=== PATIENT | male | born 1975 | race Caucasian/White ===

== ENCOUNTER 2020-09-04 14:41 | Inpatient (IN) | payer OTHER ==
--- NOTE | 2020-09-04 15:14 | ED ---
General Adult HPI - General Chief complaint: Chest Pain Stated complaint: CHEST PAIN Time Seen by Provider: 09/04/20 15:11 Source: patient, EMS Mode of arrival: EMS Limitations: no limitations - History of Present Illness Initial comments: Patient presents to the ED by ambulance from shelter for evaluation with shelter officers at bedside. Patient reports having intermittent left-sided chest pain radiating to his left shoulder for the past 2 days or so. Patient admits to having associated nausea, and he states that he vomited once yesterday. Patient also admits to having mild associated dyspnea. Patient denies trauma or injury, fever or chills, headache, focal numbness/weakness/neuro deficit, neck/jaw pain, pleuritic pain, cough or cold symptoms, palpitations, dizziness, nausea/vomiting/diaphoresis, abdominal pain, dysuria or urinary symptoms, d ecreased urine output, leg or calf swelling or pain, or any other symptoms or complaints. Patient states that his chest pain is currently minimal. - Related Data Allergies Allergy/AdvReac Type Severity Reaction Status Date / Time No Known Allergies Allergy Verified 09/04/20 15:02 Review of Systems ROS Statement: Those systems with pertinent positive or pertinent negative responses have been documented in the HPI. ROS Other: All systems not noted in ROS Statement are negative. Past Medical History Past Medical History: Hypertension History of Any Multi-Drug Resistant Organisms: None Reported Additional Past Surgical History / Comment(s): Surgery for repair of coarctation of the aorta as a child Past Psychological History: Bipolar, Depression Smoking Status: Never smoker Past Alcohol Use History: None Reported Past Drug Use History: None Reported General Exam Limitations: no limitations General appearance: alert, in no apparent distress Head exam: Present: atraumatic, normocephalic Eye exam: Present: normal appearance, EOMI ENT exam: Present: mucous membranes moist Neck exam: Present: other (Trachea is in midline) Respiratory exam: Present: normal lung sounds bilaterally. Absent: respiratory distress, wheezes, rales, rhonchi, stridor, chest wall tenderness Cardiovascular Exam: Present: normal rhythm, tachycardia, normal heart sounds, other (Normal radial pulses bilaterally) GI/Abdominal exam: Present: soft. Absent: distended, tenderness, guarding Extremities exam: Present: other (Negative Homans sign bilaterally). Absent: tenderness, pedal edema, calf tenderness Neurological exam: Present: alert, oriented X3. Absent: motor sensory deficit Psychiatric exam: Present: normal affect, normal mood Skin exam: Present: warm, dry, intact, normal color Course Vital Signs 09/04/20 09/04/20 09/04/20 15:02 16:55 18:05 Temperature 98.1 F Pulse Rate 114 H 97 98 Respiratory 20 18 18 Rate Blood Pressure 136/93 155/102 163/102 O2 Sat by Pulse 96 96 97 Oximetry - Reevaluation(s) Reevaluation #1: 09/04/20 19:08 Case, H&P, test results and ED management were discussed with BIJAL Jerez. He accepts hospital admission on behalf of himself Dr. Gonzalez. He agrees with cardiology consultation. He has no further recommendations at this time. 09/04/20 19:17 Patient states that his pain has improved while in the ED, he denies development of any new symptoms while in the ED. Patient has not had any vomiting while in the ED. Patient remains alert and breathing comfortably with a normal room air oxygen saturation. Patient continues to deny having any abdominal pain, and he has absolutely no abdominal tenderness on examination even with deep palpation of his epigastrium and right upper quadrant. Patient is aware of his test results, and he agrees with hospital admission at this time. EKG Findings - EKG Comments: EKG Findings:: Sinus tachycardia, ventricular rate 112 bpm, no ectopy, incomplete right bundle branch block, LVH with inferolateral ST and T-wave abnormality consistent with strain pattern, normal axis, no old EKG is available for comparison Medical Decision Making - Medical Decision Making Patient's troponin is negative. Patient's CT angiogram chest is negative for pulmonary embolism. Despite the patient's gallbladder ultrasound findings, I think that acute cholecystitis is highly unlikely. Patient is afebrile and without leukocytosis. Patient has normal liver function tests. Patient denies having any abdominal pain, and he has absolutely no abdominal tenderness on examination. I have discussed all of this with BIJAL Jerez who has accepted hospital admission. Patient will be admitted for further evaluation, cardiac monitoring and cardiology consultation. - Lab Data Result diagrams: 09/04/20 15:38 09/04/20 15:38 Lab Results 09/04/20 09/04/20 09/04/20 Range/Units 15:38 15:38 15:38 WBC 7.4 (3.8-10.6) k/uL RBC 4.63 (4.30-5.90) m/uL Hgb 14.3 (13.0-17.5) gm/dL Hct 40.1 (39.0-53.0) % MCV 86.5 (80.0-100.0) fL MCH 30.8 (25.0-35.0) pg MCHC 35.6 (31.0-37.0) g/dL RDW 12.2 (11.5-15.5) % Plt Count 154 (150-450) k/uL MPV 8.6 Neutrophils % 75 % Lymphocytes % 17 % Monocytes % 5 % Eosinophils % 1 % Basophils % 0 % Neutrophils # 5.6 (1.3-7.7) k/uL Lymphocytes # 1.3 (1.0-4.8) k/uL Monocytes # 0.3 (0-1.0) k/uL Eosinophils # 0.0 (0-0.7) k/uL Basophils # 0.0 (0-0.2) k/uL PT 11.0 (9.0-12.0) sec INR 1.0 (<1.2) APTT 20.2 L (22.0-30.0) sec D-Dimer 10.73 H (<0.60) mg/L FEU Sodium 139 (137-145) mmol/L Potassium 3.9 (3.5-5.1) mmol/L Chloride 107 (98-107) mmol/L Carbon Dioxide 19 L (22-30) mmol/L Anion Gap 13 mmol/L BUN 31 H (9-20) mg/dL Creatinine 1.41 H (0.66-1.25) mg/dL Est GFR (CKD-EPI)AfAm 69 (>60 ml/min/1.73 sqM) Est GFR (CKD-EPI)NonAf 60 (>60 ml/min/1.73 sqM) Glucose 97 (74-99) mg/dL Calcium 9.0 (8.4-10.2) mg/dL Magnesium 2.0 (1.6-2.3) mg/dL Total Bilirubin 0.8 (0.2-1.3) mg/dL AST 27 (17-59) U/L ALT 20 (4-49) U/L Alkaline Phosphatase 64 (38-126) U/L Troponin I (0.000-0.034) ng/mL NT-Pro-B Natriuret Pep pg/mL Total Protein 6.7 (6.3-8.2) g/dL Albumin 4.2 (3.5-5.0) g/dL Lipase 19 L (23-300) U/L 09/04/20 09/04/20 Range/Units 15:38 15:38 WBC (3.8-10.6) k/uL RBC (4.30-5.90) m/uL Hgb (13.0-17.5) gm/dL Hct (39.0-53.0) % MCV (80.0-100.0) fL MCH (25.0-35.0) pg MCHC (31.0-37.0) g/dL RDW (11.5-15.5) % Plt Count (150-450) k/uL MPV Neutrophils % % Lymphocytes % % Monocytes % % Eosinophils % % Basophils % % Neutrophils # (1.3-7.7) k/uL Lymphocytes # (1.0-4.8) k/uL Monocytes # (0-1.0) k/uL Eosinophils # (0-0.7) k/uL Basophils # (0-0.2) k/uL PT (9.0-12.0) sec INR (<1.2) APTT (22.0-30.0) sec D-Dimer (<0.60) mg/L FEU Sodium (137-145) mmol/L Potassium (3.5-5.1) mmol/L Chloride (98-107) mmol/L Carbon Dioxide (22-30) mmol/L Anion Gap mmol/L BUN (9-20) mg/dL Creatinine (0.66-1.25) mg/dL Est GFR (CKD-EPI)AfAm (>60 ml/min/1.73 sqM) Est GFR (CKD-EPI)NonAf (>60 ml/min/1.73 sqM) Glucose (74-99) mg/dL Calcium (8.4-10.2) mg/dL Magnesium (1.6-2.3) mg/dL Total Bilirubin (0.2-1.3) mg/dL AST (17-59) U/L ALT (4-49) U/L Alkaline Phosphatase (38-126) U/L Troponin I 0.016 (0.000-0.034) ng/mL NT-Pro-B Natriuret Pep 38 pg/mL Total Protein (6.3-8.2) g/dL Albumin (3.5-5.0) g/dL Lipase (23-300) U/L - Radiology Data Radiology results: report reviewed (Chest x-ray: Normal chest) CT angiography chest with IV contrast: No evidence of pulmonary embolism. Emphysema. Large gallbladder could relate to cholecystitis. Gallbladder ultrasound: Mildly dilated gallbladder. Minimal wall thickening. This is consistent with cholecystitis. No gallstones seen. No focal liver defect. Disposition Clinical Impression: Chest pain Disposition: ADMITTED IP TO THIS HOSP Condition: Stable Is patient prescribed a controlled substance at d/c from ED?: No Referrals: None,Stated [Primary Care Provider] - 1-2 days Time of Disposition: 19:09
[2020-09-04] MEDS ORDERED: ASPIRIN 81 MG PO STA (15:19)
[2020-09-04 15:49] LABS: Basophils % (A) 0 %; Eosinophils % (A) 1 %; HCT 40.1 % (39.0-53.0); HGB 14.3 gm/dL (13.0-17.5); Lymphocytes # (A) 1.3 k/uL (1.0-4.8); Lymphocytes % (A) 17 %; MCH 30.8 pg (25.0-35.0); MCHC 35.6 g/dL (31.0-37.0); MCV 86.5 fL (80.0-100.0); Mean Platelet Volume 8.6; Monocytes # (A) 0.3 k/uL (0-1.0); Monocytes % (A) 5 %; Neutrophils # (A) 5.6 k/uL (1.3-7.7); Neutrophils % (A) 75 %; Platelet Count 154 k/uL (150-450); RBC 4.63 m/uL (4.30-5.90); RDW 12.2 % (11.5-15.5); WBC 7.4 k/uL (3.8-10.6)
[2020-09-04 15:57] LABS: Albumin 4.2 g/dL (3.5-5.0); Potassium 3.9 mmol/L (3.5-5.1); Total Bilirubin 0.8 mg/dL (0.2-1.3); Total Protein 6.7 g/dL (6.3-8.2)
--- NOTE | 2020-09-04 16:09 | XR ---
EXAMINATION TYPE: XR chest 1V portable DATE OF EXAM: 09/04/2020 COMPARISON: NONE HISTORY: Chest pain TECHNIQUE: Single view FINDINGS: Heart and mediastinum are normal. Lungs are clear. Diaphragm is normal. Bony thorax is inta ct. IMPRESSION: Normal chest.
[2020-09-04 16:21] LABS: D-Dimer 10.73 mg/L FEU (<0.60); Partial Thromboplastin Time 20.2 sec (22.0-30.0)
[2020-09-04] MEDS ORDERED: SODIUM CHLORIDE 0.9% 1,000 ML IV ONE (16:24)
--- NOTE | 2020-09-04 17:12 | CT ---
EXAMINATION TYPE: CT chest angio for PE DATE OF EXAM: 09/04/2020 COMPARISON: None HISTORY: Chest pain with shortness of breath. CT DLP: 480.2 mGycm Automated exposure control for dose reduction was used. CONTRAST: Performed with IV Contrast, patient injected with 80 mL of Isovue 370. Images obtained from the thoracic inlet to the diaphragm with IV contrast. There are 3-D post process ed images. There is some bullous pulmonary emphysema. There is no pneumothorax. The lungs are clear of consolida tion. There is no pleural effusion. Heart size is normal. There is no pericardial effusion. There is no mediastinal adenopathy. There are no hilar masses. Thoracic aorta shows no aneurysm or di ssection. Ascending aorta measures 3.2 cm. There is normal contrast opacification of the pulmonary arteries. There are no filling defects. The upper abdominal soft tissues show mildly dilated gallbladder measuring 5 cm in diameter. The bony thorax is intact. There is no compression fracture. Sternum is intact. IMPRESSION: No evidence of pulmonary embolism. Emphysema. Large gallbladder could relate to cholecystitis.
--- NOTE | 2020-09-04 18:30 | US ---
EXAMINATION TYPE: US gallbladder DATE OF EXAM: 09/04/2020 COMPARISON: NONE CLINICAL HISTORY: Enlarged gallbladder on CT, vomiting. Very difficult and limited exam due to overly ing bowel gas EXAM MEASUREMENTS: Liver Length: 12.8 cm Gallbladder Wall: 0.27 cm CBD: 0.3 cm Right Kidney: 9.8 x 4.4 x 4.4 cm Pancreas: Obscured by bowel gas Liver: wnl as visualized Gallbladder: Appears hydropic, no stones visualized. Wall measuring upper limits of normal Evidence for sonographic Rivas's sign: No CBD: wnl Right Kidney: No hydronephrosis or masses seen IMPRESSION: Mildly dilated gallbladder. Minimal wall thickening. This is consistent with cholecystitis. No gallst ones seen. No focal liver defect.
[2020-09-04] MEDS ORDERED: MORPHINE SULFATE 4 MG/ML SYRINGE IVP PRN (21:01)
[2020-09-04] MEDS ORDERED: ACETAMINOPHEN TAB 325 MG TAB PO PRN (21:02)
[2020-09-04] MEDS ORDERED: PANTOPRAZOLE 40 MG TABLET PO STA (21:06)
[2020-09-04] MEDS: PANTOPRAZOLE 40 MG TABLET PO SCH ×2 (22:09→22:26)
[2020-09-04] MEDS: HEPARIN SODIUM,PORCINE/PF 5,000 UNIT/0.5 ML SYRINGE SQ SCH (22:09)
[2020-09-04] MEDS: busPIRone HCl 5 MG TAB PO SCH (23:32)
[2020-09-05] MEDS: buPROPion 100 MG TAB PO SCH ×3 (00:02→21:17)
[2020-09-05] MEDS: PANTOPRAZOLE 40 MG TABLET PO SCH (08:55)
[2020-09-05] MEDS: busPIRone HCl 5 MG TAB PO SCH ×2 (08:55→21:10)
[2020-09-05] MEDS: HEPARIN SODIUM,PORCINE/PF 5,000 UNIT/0.5 ML SYRINGE SQ SCH ×2 (08:56→21:11)
[2020-09-05 09:20] LABS: Basophils # (A) 0.04 X 10*3/uL (0.00-0.10); Basophils % (A) 0.6 %; Eosinophils # (A) 0.12 X 10*3/uL (0.04-0.35); Eosinophils % (A) 1.8 %; HCT 38.6 % (39.6-50.0); HGB 13.2 g/dL (13.0-17.0); Lymphocytes # (A) 2.04 X 10*3/uL (0.90-5.00); Lymphocytes % (A) 31.1 %; MCH 30.5 pg (27.0-32.0); MCHC 34.2 g/dL (32.0-37.0); MCV 89.1 fL (80.0-97.0); Mean Platelet Volume 11.8 fL (9.5-12.2); Monocytes # (A) 0.56 X 10*3/uL (0.20-1.00); Monocytes % (A) 8.5 %; Neutrophils # (A) 3.78 X 10*3/uL (1.80-7.70); Neutrophils % (A) 57.8 %; Platelet Count 165 X 10*3/uL (140-440); RBC 4.33 X 10*6/uL (4.40-5.60); RDW 12.3 % (11.5-14.5); WBC 6.55 X 10*3/uL (4.50-10.00)
--- NOTE | 2020-09-05 09:36 | P.CRDCN ---
History of Present Illness Consult date: 09/05/20 Requesting physician: Isaac Gonzalez Reason for Consult (text): chest pain Chief complaint: chest pain History of present illness: This is a 44-year-old gentleman with history of hypertension, bipolar depression, chronic lung disease and surgery as a child to repair coarctation of the aorta. He was a previous smoker but quit 11 years ago. Patient has been in assisted for the last 11 years. Is brought to the emergency department with complaints of chest discomfort over the last couple of days. He's been having left-sided chest discomfort radiating to the left shoulder at times. He's also been having some nausea, poor appetite, episodes of emesis. Complaining of some occasional palpitations over the last couple of days as well as his chest feeling heavy for the last 2 days. He complains of shortness of breath however this is somewhat normal for him he is on inhalers on a regular basis. EKG on admission shows sinus tachycardia, biatrial enlargement, incomplete right bundle-branch block and evidence of LVH. Chest x-ray showed normal chest. Chest CTA showed no evidence of pulmonary embolism, emphysema and large gallbladder which could relate to cholecystitis. Ultrasound of the gallbladder showed mildly dilated gallbladder, minimal wall thickening, consistent with cholecystitis, no gallstones and no focal liver defect. Patient has no abdominal tenderness to palpation. Laboratory values showed a normal CBC, potassium 3.9, BUN 31, creatinine 1.41, NT proBNP of 38 and troponin 0.016, 0.045 and 0.040. Upon examination comfortably in bed he has no further complaints of chest discomfort. He's had no further complaints of nausea or vomiting, no dizziness or lightheadedness. He denies any shortness of breath or palpitations at this time. He's had no edema or orthopnea. Past Medical History Past Medical History: Hypertension History of Any Multi-Drug Resistant Organisms: None Reported Past Surgical History: Coronary Bypass/CABG Additional Past Surgical History / Comment(s): Surgery for repair of coarctation of the aorta as a child Past Psychological History: Bipolar, Depression Smoking Status: Never smoker Past Alcohol Use History: None Reported Past Drug Use History: None Reported Medications and Allergies Home Medications Medication Instructions Recorded Confirmed Type Albuterol Sulfate [Albuterol 1 puff PO RT-QID PRN 09/04/20 09/04/20 History Sulfate Hfa] Cetirizine HCl 10 mg PO DAILY 09/04/20 09/04/20 History Ciclesonide [Alvesco] 2 puff INHALATION RT-BID 09/04/20 09/04/20 History Ibuprofen [Motrin Ib] 800 mg PO BID PRN 09/04/20 09/04/20 History Omeprazole 20 mg PO DAILY 09/04/20 09/04/20 History buPROPion [Wellbutrin] 100 mg PO BID 09/04/20 09/04/20 History busPIRone HCL 15 mg PO BID 09/04/20 09/04/20 History chlorproMAZINE [Thorazine] 100 mg PO HS 09/04/20 09/04/20 History lisinopriL 30 mg PO DAILY 09/04/20 09/04/20 History Allergies Allergy/AdvReac Type Severity Reaction Status Date / Time No Known Allergies Allergy Verified 09/04/20 19:37 Physical Exam Vitals: Vital Signs Temp Pulse Pulse Resp BP BP Pulse Ox 09/05/20 07:00 97.6 F 91 17 126/83 98 09/05/20 02:00 98.2 F 102 H 17 105/67 96 09/04/20 20:00 98.7 F 92 18 143/105 99 09/04/20 19:27 98.2 F 97 18 131/90 96 09/04/20 18:05 98 18 163/102 97 09/04/20 16:55 97 18 155/102 96 09/04/20 15:02 98.1 F 114 H 20 136/93 96 Intake and Output 09/04/20 09/05/20 09/05/20 22:59 06:59 14:59 Other: Voiding Method Toilet Urinal Weight 84.822 kg PHYSICAL EXAMINATION: This is a 44-year-old gentleman in no apparent distress at the time of my examination. VITAL SIGNS: Blood pressure 126/83, heart rate 91, respirations 17, temp 97.6F. Patient is 98 % on 2 L via nasal cannula. HEENT: Head is atraumatic, normocephalic. Pupils are equal, round. Sclerae anicteric. Conjunctivae are clear. Mucous membranes of the mouth are moist. Neck is supple. There is no elevated jugular venous pressure. No carotid bruit is heard. CHEST EXAMINATION: Diminished to auscultation bilaterally. No wheezes rales or rhonchi. Respirations even and nonlabored. HEART EXAMINATION: Heart regular, positive S1 and S2. No S3. No S4. No clicks, rubs or murmurs. No chest wall tenderness to palpation ABDOMEN: Soft, nontender. Bowel sounds are heard. No organomegaly noted. EXTREMITIES: 2+ peripheral pulses with no evidence of peripheral edema and no calf tenderness noted. NEUROLOGIC EXAMINATION: Patient is awake, alert and oriented x3. Results 09/05/20 04:28 09/04/20 15:38 Cardiac Enzymes 09/04/20 09/04/20 09/04/20 Range/Units 15:38 15:38 21:40 AST 27 (17-59) U/L Troponin I 0.016 0.045 H* (0.000-0.034) ng/mL 09/05/20 Range/Units 00:32 AST (17-59) U/L Troponin I 0.040 H* (0.000-0.034) ng/mL Coagulation 09/04/20 Range/Units 15:38 PT 11.0 (9.0-12.0) sec APTT 20.2 L (22.0-30.0) sec CBC 09/04/20 Range/Units 15:38 WBC 7.4 (3.8-10.6) k/uL RBC 4.63 (4.30-5.90) m/uL Hgb 14.3 (13.0-17.5) gm/dL Hct 40.1 (39.0-53.0) % Plt Count 154 (150-450) k/uL Comprehensive Metabolic Panel 09/04/20 Range/Units 15:38 Sodium 139 (137-145) mmol/L Potassium 3.9 (3.5-5.1) mmol/L Chloride 107 (98-107) mmol/L Carbon Dioxide 19 L (22-30) mmol/L BUN 31 H (9-20) mg/dL Creatinine 1.41 H (0.66-1.25) mg/dL Glucose 97 (74-99) mg/dL Calcium 9.0 (8.4-10.2) mg/dL AST 27 (17-59) U/L ALT 20 (4-49) U/L Alkaline Phosphatase 64 (38-126) U/L Total Protein 6.7 (6.3-8.2) g/dL Albumin 4.2 (3.5-5.0) g/dL Current Medications Generic Name Dose Route Start Last Admin Trade Name Freq PRN Reason Stop Dose Admin Acetaminophen 650 mg 09/04/20 21:02 Acetaminophen Tab 325 Mg Tab PO Q6HR PRN Fever and/ or Pain Bupropion HCl 100 mg 09/04/20 23:15 09/05/20 00:02 Bupropion 100 Mg Tab PO 100 mg BID JOHN Administration Buspirone HCl 15 mg 09/04/20 23:15 09/04/20 23:32 Buspirone Hcl 5 Mg Tab PO 15 mg BID JOHN Administration Heparin Sodium (Porcine) 5,000 unit 09/04/20 21:15 09/04/20 22:09 Heparin Sodium,Porcine/Pf 5,000 Unit/0.5 Ml Syringe SQ 5,000 unit Q12HR JOHN Administration Lisinopril 30 mg 09/05/20 09:00 Lisinopril 10 Mg Tab PO DAILY JOHN Morphine Sulfate 4 mg 09/04/20 21:01 Morphine Sulfate 4 Mg/Ml Syringe IVP Q4HR PRN Pain Pantoprazole Sodium 40 mg 09/04/20 21:15 09/04/20 22:26 Pantoprazole 40 Mg Tablet PO 40 mg [id number] JOHN Administration Intake and Output 09/04/20 09/05/20 09/05/20 22:59 06:59 14:59 Other: Voiding Method Toilet Urinal Weight 84.822 kg 09/04/20 15:38 09/04/20 15:38 Assessment and Plan Assessment: #1 symptoms of chest pain, shortness of breath, palpitations as well as nausea with episode of emesis #2 hypertension #3 prior surgical repair of coarctation of aorta #4 bipolar depression #5 prior nicotine dependence Plan: From cardiology perspective will obtain a 2-D echo with Doppler to assess cardiac structure and function. We will continue to follow the patient and if there are no significant abnormalities noted on echocardiogram will schedule the patient undergo stress echocardiogram tomorrow. Further recommendations to follow. [employer] note has been reviewed, I agree with a documented findings and plan of care. Patient was seen and examined.
[2020-09-05 10:31] LABS: African American GFR (CKD) 83.5 (60.0-200.0); Albumin 4.2 g/dL (3.80-4.90); Albumin/Globulin Ratio 1.91 (1.60-3.17); Anion Gap 11.5 mmol/L (4.00-12.00); BUN/Creat Ratio 23.33 Ratio (12.00-20.00); Calcium 8.8 mg/dL (8.7-10.3); Carbon Dioxide 22.5 mmol/L (21.6-31.8); Globulin 2.2 g/dL (1.6-3.3); Non-African American GFR(CKD) 72.1 (60.0-200.0); Potassium 3.5 mmol/L (3.5-5.5); Total Bilirubin 0.7 mg/dL (0.3-1.2); Total Protein 6.4 g/dL (6.2-8.2)
[2020-09-05] MEDS ORDERED: ALBUTEROL HFA INHALER INHALATION PRN (10:55)
[2020-09-05] MEDS: LORATADINE 10 MG TAB PO SCH (11:37)
[2020-09-05] MEDS: lisinopriL 10 MG TAB PO SCH (11:37)
--- NOTE | 2020-09-05 13:00 | ECHOF ---
Referral Reason:chest pain MEASUREMENTS -------- HEIGHT: 182.9 cm WEIGHT: 84.8 kg BP: 126/83 RVIDd: 2.6 cm (< 3.3) IVSd: 1.1 cm (0.6 - 1.1) LVIDd: 4.6 cm (3.9 - 5.3) LVPWd: 1.1 cm (0.6 - 1.1) IVSs: 1.5 cm LVIDs: 2.7 cm LVPWs: 1.7 cm LA Diam: 3.1 cm (2.7 - 3.8) LAESV Index (A-L): 18.19 ml/m Ao Diam: 2.6 cm (2.0 - 3.7) AV Cusp: 1.9 cm (1.5 - 2.6) MV EXCURSION: 15.228 mm (> 18.000) MV EF SLOPE: 71 mm/s (70 - 150) EPSS: 0.6 cm MV E Ike: 1.03 m/s MV DecT: 285 ms MV A Ike: 0.87 m/s MV E/A Ratio: 1.17 AV maxP.40 mmHg AV meanP.19 mmHg RAP: 5.00 mmHg RVSP: 40.81 mmHg FINDINGS -------- Sinus rhythm. This was a technically good study. The left ventricular size is normal. There is borderline concentric left ventricular hypertrophy. Overall left ventricular systolic function is normal with, an EF between 55 - 60 %. The diastolic filling pattern is normal for the age of the patient 13.30. The right ventricle is normal in size. Normal LA size by volume 22+/-6 ml/m2. The right atrial size is normal. Interatrial and interventricular septum intact. Aortic valve is trileaflet and is mildly thickened. Trace to mild aortic regurgitation. The mitral valve is normal. There is trace to mild mitral regurgitation. The tricuspid valve appears structurally normal. Mild tricuspid regurgitation present. There is m ild pulmonary hypertension. The right ventricular systolic pressure, as measured by Doppler, is 40. 81mmHg. There is no pulmonic regurgitation present. The aortic root size is normal. There is elevated pressure gradient on descending AO. Coarctation r epair at age 3 Normal inferior vena cava with normal inspiratory collapse consistent with estimated right atrial pre ssure of 5 mmHg. There is no pericardial effusion. CONCLUSIONS -------- 1. There is borderline concentric left ventricular hypertrophy. 2. Overall left ventricular systolic function is normal with, an EF between 55 - 60 %. 3. Normal LA size by volume 22+/-6 ml/m2. 4. Trace to mild aortic regurgitation. 5. There is trace to mild mitral regurgitation. 6. Mild tricuspid regurgitation present. 7. There is mild pulmonary hypertension. 8. There is elevated pressure gradient on descending AO. Coarctation repair at age 3 9. There is no pericardial effusion. ROADS SUPERVISOR: Lori Obando RDCS
--- NOTE | 2020-09-05 17:50 | P.HPIM ---
History of Present Illness H&P Date: 09/05/20 Chief Complaint: Chest pain Mr. Torres is a 44-year-old male with a past medical history of hypertension who was sent in from assisted for evaluation of left-sided chest pain. Patient has assisted officers at bedside. Patient states for the past 2-3 days he has been having chest pain substernal left-sided radiating to the left shoulder. Patient denies having any aggravating or relieving factors. He states that it is associated with nausea and had 1 episode of vomiting. He mentions that he was having mild difficulty in breathing associated with chest pain. He denies havi ng any orthopnea or PND. Patient denies having any swelling of his lower extremities. He states that he has history of hypertension and takes his medication. Patient denies having any syncopal episode or loss of consciousness. Patient denies having any cough or difficulty in breathing. No fever chills or rigors. No abdominal pain nausea vomiting or diarrhea. No dysuria or hematuria. Patient states that he has history of repair of coarctation of the aorta as a child. In the ER at the time of admission patient's vitals temperature 98.1, heart rate 114, respiratory 20, blood pressure 136/93 saturating at 96% on room air. Patient had a chest x-ray that was negative for any acute cardiopulmonary process. He had CTA of the chest that was showing no evidence of pulmonary embolism but large-caliber bladder could be related to cholecystitis. So the patient had ultrasound of the gallbladder showing mildly dilated gallbladder with minimal wall thickening consistent with cholecystitis. On reviewing his labs white count of 6.5, hemoglobin 13.2, platelets 165. Sodium 144 combination 2.3, chloride 110, bicarbonate 20, when necessary 28, creatinine 1.2. Troponin 0.016, 0.045, 0.040. Review of Systems REVIEW OF SYSTEMS: CONSTITUTIONAL: No fever, no malaise, no fatigue. HEENT: No headache, no neck stiffness, no blurring of vision CARDIOVASCULAR: as per HPI PULMONARY: No cough or difficulty in breathing GASTROINTESTINAL: No Abdominal pain nausea vomiting or diarrhea NEUROLOGICAL: No weakness of extremities HEMATOLOGICAL: Denies any bleeding or petechiae. GENITOURINARY: Denies any burning micturition, frequency, or urgency. MUSCULOSKELETAL/RHEUMATOLOGICAL: Denies any joint pain, swelling, or any muscle pain. ENDOCRINE: Denies polyuria polydipsia or heat or cold intolerance The rest of the 14-point review of systems is negative. Past Medical History Past Medical History: Hypertension History of Any Multi-Drug Resistant Organisms: None Reported Past Surgical History: Coronary Bypass/CABG Additional Past Surgical History / Comment(s): Surgery for repair of coarctation of the aorta as a child Past Psychological History: Bipolar, Depression Smoking Status: Never smoker Past Alcohol Use History: None Reported Past Drug Use History: None Reported Medications and Allergies Home Medications Medication Instructions Recorded Confirmed Type Albuterol Sulfate [Albuterol 1 puff PO RT-QID PRN 09/04/20 09/04/20 History Sulfate Hfa] Cetirizine HCl 10 mg PO DAILY 09/04/20 09/04/20 History Ciclesonide [Alvesco] 2 puff INHALATION RT-BID 09/04/20 09/04/20 History Ibuprofen [Motrin Ib] 800 mg PO BID PRN 09/04/20 09/04/20 History Omeprazole 20 mg PO DAILY 09/04/20 09/04/20 History buPROPion [Wellbutrin] 100 mg PO BID 09/04/20 09/04/20 History busPIRone HCL 15 mg PO BID 09/04/20 09/04/20 History chlorproMAZINE [Thorazine] 100 mg PO HS 09/04/20 09/04/20 History lisinopriL 30 mg PO DAILY 09/04/20 09/04/20 History Allergies Allergy/AdvReac Type Severity Reaction Status Date / Time No Known Allergies Allergy Verified 09/04/20 19:37 Physical Exam Vitals: Vital Signs Temp Pulse Pulse Resp BP BP Pulse Ox 09/05/20 07:00 97.6 F 91 17 126/83 98 09/05/20 02:00 98.2 F 102 H 17 105/67 96 09/04/20 20:00 98.7 F 92 18 143/105 99 09/04/20 19:27 98.2 F 97 18 131/90 96 09/04/20 18:05 98 18 163/102 97 09/04/20 16:55 97 18 155/102 96 09/04/20 15:02 98.1 F 114 H 20 136/93 96 Intake and Output 07/04/21 07/05/21 07/05/21 22:59 06:59 14:59 Other: Voiding Method Toilet Urinal Weight 84.822 kg PHYSICAL EXAMINATION: GENERAL: Comfortably lying up in the bed appears to be no acute distress. HEENT: Pupils are round and equally reacting to light. EOMI. No scleral icterus. No conjunctival pallor. CARDIOVASCULAR: S1 and S2 present. No murmurs, rubs, or gallops. PULMONARY: Bilateral breath sounds positive. No wheeze or crackles.. ABDOMEN: Soft,non -tender, normal bowel sounds. No guarding or rigidity. MUSCULOSKELETAL: No joint swelling or deformity. EXTREMITIES: No edema NEUROLOGICAL: Gross neurological examination did not reveal any focal deficits. SKIN:No rash Results CBC & Chem 7: 09/05/20 04:28 09/05/20 04:28 Labs: Abnormal Lab Results - Last 24 Hours (Table) 09/04/20 09/04/20 09/04/20 Range/Units 15:38 15:38 21:40 RBC (4.40-5.60) X 10*6/uL Hct (39.6-50.0) % APTT 20.2 L (22.0-30.0) sec D-Dimer 10.73 H (<0.60) mg/L FEU Chloride (96-109) mmol/L Carbon Dioxide 19 L (22-30) mmol/L BUN 31 H (9-20) mg/dL Creatinine 1.41 H (0.66-1.25) mg/dL BUN/Creatinine Ratio (12.00-20.00) Ratio Troponin I 0.045 H* (0.000-0.034) ng/mL Lipase 19 L (23-300) U/L 09/05/20 09/05/20 09/05/20 Range/Units 00:32 04:28 04:28 RBC 4.33 L (4.40-5.60) X 10*6/uL Hct 38.6 L (39.6-50.0) % APTT (22.0-30.0) sec D-Dimer (<0.60) mg/L FEU Chloride 110 H (96-109) mmol/L Carbon Dioxide (22-30) mmol/L BUN 28.0 H (9-20) mg/dL Creatinine (0.66-1.25) mg/dL BUN/Creatinine Ratio 23.33 H (12.00-20.00) Ratio Troponin I 0.040 H* (0.000-0.034) ng/mL Lipase (23-300) U/L Thrombosis Risk Factor Assmnt - Choose All That Apply Each Factor Represents 1 point: Acute AR Thrombosis Risk Factor Assessment Total Risk Factor Score: 1 Thrombosis Risk Factor Assessment Level: Low Risk Assessment and Plan Assessment: ASSESSMENT Chest pain and difficulty in breathing Elevated troponins Acute kidney injury possibly due to dehydration Hypertension History of surgical repair of coarctation of aorta as a child Former smoker Bipolar disorder PLAN: Patient had tests pain along with elevated troponins and mildly elevated creatinine. Patient received IV fluids in the ED, creatinine is slowly trending down. Cardiology consulted, echocardiogram ordered and pending. Patient had an ultrasound of the abdomen showing mildly dilated gallbladder with minimal wall thickening consistent with cholecystitis. But patient's AST , ALT, alk phos and bilirubin within normal limits. We'll continue to monitor the patient closely. Further recommendations to follow depending on the progress of the patient.
[2020-09-05] MEDS: METOPROLOL TARTRATE 25 MG TAB PO SCH (17:59)
[2020-09-05] MEDS: chlorproMAZINE 100 MG TAB PO SCH (21:10)
[2020-09-06] MEDS: NON FORMULARY DRUG (Ciclesonide [Alvesco] 6.1 GM Hfa.Aer.Ad) INHALATION SCH ×2 (00:03→12:58)
[2020-09-06] MEDS ORDERED: PANTOPRAZOLE 40 MG TABLET PO SCH (07:30)
[2020-09-06 09:16] LABS: Basophils # (A) 0.06 X 10*3/uL (0.00-0.10); Basophils % (A) 0.9 %; Eosinophils # (A) 0.28 X 10*3/uL (0.04-0.35); Eosinophils % (A) 4.3 %; HCT 43.1 % (39.6-50.0); HGB 14.1 g/dL (13.0-17.0); Lymphocytes # (A) 1.78 X 10*3/uL (0.90-5.00); Lymphocytes % (A) 27.5 %; MCH 29.6 pg (27.0-32.0); MCHC 32.7 g/dL (32.0-37.0); MCV 90.5 fL (80.0-97.0); Mean Platelet Volume 12.1 fL (9.5-12.2); Monocytes # (A) 0.43 X 10*3/uL (0.20-1.00); Monocytes % (A) 6.6 %; Neutrophils # (A) 3.91 X 10*3/uL (1.80-7.70); Neutrophils % (A) 60.4 %; Platelet Count 166 X 10*3/uL (140-440); RBC 4.76 X 10*6/uL (4.40-5.60); RDW 12.4 % (11.5-14.5); WBC 6.48 X 10*3/uL (4.50-10.00)
[2020-09-06 09:46] LABS: African American GFR (CKD) 124.2 (60.0-200.0); Albumin 4.3 g/dL (3.80-4.90); Albumin/Globulin Ratio 1.87 (1.60-3.17); Anion Gap 9.6 mmol/L (4.00-12.00); BUN/Creat Ratio 26.25 Ratio (12.00-20.00); Carbon Dioxide 24.4 mmol/L (21.6-31.8); Globulin 2.3 g/dL (1.6-3.3); Non-African American GFR(CKD) 107.1 (60.0-200.0); Total Bilirubin 0.4 mg/dL (0.2-1.2); Total Protein 6.6 g/dL (6.2-8.2)
--- NOTE | 2020-09-06 11:40 | P.PN ---
Subjective This is a 44-year-old gentleman with history of hypertension, bipolar depression, chronic lung disease and surgery as a child to repair coarctation of the aorta. He was a previous smoker but quit 11 years ago. Patient has been in correction for the last 11 years. Is brought to the emergency department with complaints of chest discomfort over the last couple of days. EKG on admission shows sinus tachycardia, biatrial enlargement, incomplete right bundle-branch block and evidence of LVH. Chest x-ray showed normal chest. Chest CTA showed no evidence of pulmonary embolism, emphysema and large gallbladder which could relate to cholecystitis. Report of chest CTA was reviewed again and showed no aneurysm or dissection of the traffic aorta with a descending aorta measuring 3.2 cm. Ultrasound of the gallbladder showed mildly dilated gallbladder, minimal wall thickening, consistent with cholecystitis, no gallstones and no focal liver defect. Patient has no abdominal tenderness to palpation. Laboratory values showed a normal CBC, potassium 3.9, BUN 31, creatinine 1.41, NT proBNP of 38 and troponin 0.016, 0.045 and 0.040. Echocardiogram revealed an EF of 55-60%, trace to mild aortic regurgitation, trace to mild mitral regurgitation, mild tricuspid regurgitation, mild pulmonary hypertension. Elevated pressure gradient on descending aorta, coarctation repair at age 3. 09/06/2020 Patient seen and examined at bedside, no acute distress. Blood pressure 116/75, heart rate 79, afebrile, maintaining oxygen saturations on room air. Laboratory reviewed CBC unremarkable, sodium 143, potassium 4.0, BUN 21, serum creatinine 0.8, proBNP 38. Patient currently maintained on aspirin 1 mg daily, Wellbutrin, lisinopril 30 mg daily, metoprolol tartrate 25 mg twice a day. GENERAL: Well-appearing, well-nourished and in no acute distress. NECK: Supple without JVD or thyromegaly. LUNGS: Breath sounds clear to auscultation bilaterally. Respiration equal and unlabored. No wheezes, rales or rhonchi. HEART: Regular rate and rhythm. S1 and S2 heard. EXTREMITIES: Normal range of motion, no edema. No clubbing or cyanosis. Peripheral pulses intact. ASSESSMENT Chest pain, shortness of breath, palpitations Elevated troponin, not consistent with acute coronary syndrome. Hypertension Prior surgical repair of coarctation of aorta Bipolar depression Former nicotine dependence PLAN Echocardiogram reviewed. Repeat EKG this morning We will plan for stress echo test today Recommend surgery consult for cholecystitis If no acute findings on stress echo test, no further testing from a cardiac perspective indicated. Patient can follow up as an outpatient in the office If stress test is abnormal will consider coronary angiography. Continue current cardiac medications. Nurse Practitioner note has been reviewed, I agree with a documented findings and plan of care. Patient was seen and examined. Objective - Vital Signs Vital signs: Vital Signs Temp 97.9 F 09/06/20 07:05 Pulse 79 09/06/20 07:05 Resp 16 09/06/20 07:05 BP 116/75 09/06/20 07:05 Pulse Ox 97 09/06/20 07:05 Intake & Output 09/05/20 09/06/20 09/06/20 18:59 06:59 18:59 Intake Total 417 Balance 417 Intake: Oral 417 Other: Voiding Method Toilet Toilet Urinal Urinal # Voids 3 # Bowel Movements 1 - Labs CBC & Chem 7: 09/06/20 04:43 09/06/20 04:43 Labs: Abnormal Lab Results - Last 24 Hours (Table) 09/06/20 Range/Units 04:43 BUN/Creatinine Ratio 26.25 H (12.00-20.00) Ratio Glucose 118 H (70-110) mg/dL
[2020-09-06] MEDS: busPIRone HCl 5 MG TAB PO SCH ×2 (12:55→20:57)
[2020-09-06] MEDS: ASPIRIN 81 MG PO SCH (12:55)
[2020-09-06] MEDS: LORATADINE 10 MG TAB PO SCH (12:56)
[2020-09-06] MEDS: PANTOPRAZOLE 40 MG TABLET PO SCH (12:56)
[2020-09-06] MEDS: HEPARIN SODIUM,PORCINE/PF 5,000 UNIT/0.5 ML SYRINGE SQ SCH ×2 (12:57→21:00)
[2020-09-06] MEDS: METOPROLOL TARTRATE 25 MG TAB PO SCH ×2 (12:57→20:58)
[2020-09-06] MEDS: lisinopriL 10 MG TAB PO SCH (12:57)
[2020-09-06] MEDS: buPROPion 100 MG TAB PO SCH ×2 (12:58→20:58)
--- NOTE | 2020-09-06 13:38 | ECHOS ---
STRESS ECHOCARDIOGRAM LUMASON: Chandana INDICATIONS: Chest pain. MEDICATIONS: BASELINE HEART RATE: 91 BASELINE BLOOD PRESSURE: 143/75 MAXIMUM HEART RATE: 126 MAXIMUM BLOOD PRESSURE: 143/78 85% MPHR: 148 100% MPHR: 174 METS: 4.2 MAXIMUM STAGE REACHED: I TOTAL EXERCISE TIME: 3:08 RESULTS: Baseline EKG revealed normal sinus rhythm with LVH and repolarization changes. Patient walked on a standard Leno protocol for 3 minutes 8 seconds, achieved a maximal heart rate of 126 beats per minute. Had very atypical chest pain and he has refused to walk. He thought it was unsafe for him. Maximal heart rate was apparently 126 beats per minute. EKG remained inconclusive. By EKG criteria, this is an inconclusive stress test because of resting EKG changes. Baseline echo images revealed normal wall motion, wall thickening of all segments. At peak exercise with a maximal heart rate of about 120 beats per minute, there was good augmentation of left ventricular wall motion, wall thickening of all segments suggesting that there is no evidence of stress-induced ischemia at the above-mentioned stress level. IMPRESSION: 1. Limited exercise capacity with inconclusive stress test by EKG criteria because of resting EKG changes of LVH and repolarization. 2. Inconclusive stress echo because of inadequate chronotropic response and limited exercise capacity. MMODL / IJN: [id number] /
--- NOTE | 2020-09-06 14:21 | P.GSCN ---
History of Present Illness Consult date: 09/06/20 History of present illness: CHIEF COMPLAINT: Epigastric pain and chest pain HISTORY OF PRESENT ILLNESS: This is a 44-year-old male with a known history of hypertension, bipolar, depression, coarctation of the aorta with repair at age 3, prior nicotine dependence. Patient has been in assisted for the last 11 years. He has 2 guards at bedside. Patient initially presented with complaints of chest pain. However when he points to where it hurts it's in the epigastric area. He had pain that radiated up into the left shoulder. He also is having nausea and vomiting. Symptoms started 2 days ago. He had mildly elevated troponins. Patient was evaluated by cardiology and underwent a stress echo. He had a d-dimer that was elevated and CTA of the chest completed and was negative for PE. Abdominal ultrasound had showed mildly dilated gallbladder. Minimal wall thickening. This is consistent with cholecystitis. No gallstones seen. Patient reports that he is feeling better. Patient denies any fever, chills or sweats. Denies any change in bowel habits. Surgical service has been consult in regards to possible cholecystitis. PAST MEDICAL HISTORY: See list. PAST SURGICAL HISTORY: See list. MEDICATIONS: See list. ALLERGIES: See list. SOCIAL HISTORY: No illicit drug use. REVIEW OF SYSTEMS: CONSTITUTIONAL: Denies fever or chills. HEENT: Denies blurred vision, vision changes, or eye pain. Denies hemoptysis CARDIOVASCULAR: Denies chest pain or pressure. RESPIRATORY: No shortness of breath. GASTROINTESTINAL: See HPI for pertinent findings HEMATOLOGIC: Denies bleeding disorders. GENITOURINARY: Denies any blood in urine or increased urinary frequency. SKIN: Denies pruitis. Denies rash. PHYSICAL EXAM: VITAL SIGNS: Reviewed GENERAL: Well-developed in no acute distress. HEENT: No sclera icterus. Extraocular movements grossly intact. Moist buccal mucosa. Head is atraumatic, normocephalic. No nasal drainage. ABDOMEN: Soft. Nondistended. Epigastric tenderness NEUROLOGIC: Alert and oriented. Cranial nerves II through XII grossly intact. LABORATORY DATA: WBC 6.48 hemoglobin 14.1 platelets 166 sodium 143 potassium 4.0 creatinine 0.8 Troponin 0.016 0.045 0.040 Lipase and LFTs normal IMAGING: Abdominal ultrasound had showed mildly dilated gallbladder. Minimal wall thickening. This is consistent with cholecystitis. No gallstones seen. ASSESSMENT: 1. Acute cholecystitis 2. Epigastric pain and chest pain with nausea and vomiting PLAN: -Start patient on IV antibiotics -Start low-fat, heart healthy diet -Continue to monitor -Further recommendations forthcoming per surgeon -Cardiac workup in progress Thank you for this consultation Physician Material Specialist note has been reviewed by physician. Signing provider agrees with the documented findings, assessment, and plan of care. Past Medical History Past Medical History: Hypertension History of Any Multi-Drug Resistant Organisms: None Reported Past Surgical History: Coronary Bypass/CABG Additional Past Surgical History / Comment(s): Surgery for repair of coarctation of the aorta as a child Past Psychological History: Bipolar, Depression Smoking Status: Never smoker Past Alcohol Use History: None Reported Past Drug Use History: None Reported Medications and Allergies Home Medications Medication Instructions Recorded Confirmed Type Albuterol Sulfate [Albuterol 1 puff PO RT-QID PRN 09/04/20 09/04/20 History Sulfate Hfa] Cetirizine HCl 10 mg PO DAILY 09/04/20 09/04/20 History Ciclesonide [Alvesco] 2 puff INHALATION RT-BID 09/04/20 09/04/20 History Ibuprofen [Motrin Ib] 800 mg PO BID PRN 09/04/20 09/04/20 History Omeprazole 20 mg PO DAILY 09/04/20 09/04/20 History buPROPion [Wellbutrin] 100 mg PO BID 09/04/20 09/04/20 History busPIRone HCL 15 mg PO BID 09/04/20 09/04/20 History chlorproMAZINE [Thorazine] 100 mg PO HS 09/04/20 09/04/20 History lisinopriL 30 mg PO DAILY 09/04/20 09/04/20 History Allergies Allergy/AdvReac Type Severity Reaction Status Date / Time No Known Allergies Allergy Verified 09/04/20 19:37 Surgical - Exam Vital Signs Temp Pulse Resp BP Pulse Ox 98.1 F 114 H 20 136/93 96 09/04/20 15:02 09/04/20 15:02 09/04/20 15:02 09/04/20 15:02 09/04/20 15:02 Results - Labs 09/06/20 04:43 09/06/20 04:43 Abnormal Lab Results - Last 24 Hours (Table) 09/06/20 Range/Units 04:43 BUN/Creatinine Ratio 26.25 H (12.00-20.00) Ratio Glucose 118 H (70-110) mg/dL Diabetes panel 09/06/20 Range/Units 04:43 Sodium 143 (135-145) mmol/L Potassium 4.0 (3.5-5.5) mmol/L Chloride 109 (96-109) mmol/L Carbon Dioxide 24.4 (21.6-31.8) mmol/L BUN 21.0 (9.0-27.0) mg/dL Creatinine 0.8 (0.6-1.5) mg/dL Glucose 118 H (70-110) mg/dL Calcium 9.0 (8.7-10.3) mg/dL AST 23 (14-35) U/L ALT 19 (10-49) U/L Alkaline Phosphatase 67 (41-126) U/L Total Protein 6.6 (6.2-8.2) g/dL Albumin 4.30 (3.80-4.90) g/dL Calcium panel 09/06/20 Range/Units 04:43 Calcium 9.0 (8.7-10.3) mg/dL Albumin 4.30 (3.80-4.90) g/dL Pituitary panel 09/06/20 Range/Units 04:43 Sodium 143 (135-145) mmol/L Potassium 4.0 (3.5-5.5) mmol/L Chloride 109 (96-109) mmol/L Carbon Dioxide 24.4 (21.6-31.8) mmol/L BUN 21.0 (9.0-27.0) mg/dL Creatinine 0.8 (0.6-1.5) mg/dL Glucose 118 H (70-110) mg/dL Calcium 9.0 (8.7-10.3) mg/dL Adrenal panel 09/06/20 Range/Units 04:43 Sodium 143 (135-145) mmol/L Potassium 4.0 (3.5-5.5) mmol/L Chloride 109 (96-109) mmol/L Carbon Dioxide 24.4 (21.6-31.8) mmol/L BUN 21.0 (9.0-27.0) mg/dL Creatinine 0.8 (0.6-1.5) mg/dL Glucose 118 H (70-110) mg/dL Calcium 9.0 (8.7-10.3) mg/dL Total Bilirubin 0.4 (0.2-1.2) mg/dL AST 23 (14-35) U/L ALT 19 (10-49) U/L Alkaline Phosphatase 67 (41-126) U/L Total Protein 6.6 (6.2-8.2) g/dL Albumin 4.30 (3.80-4.90) g/dL
[2020-09-06] MEDS: PIPERACILLIN-TAZOBACTAM 3.375 GM in SODIUM CHLORIDE 0.9% 100 ML IVPB SCH (15:13)
--- NOTE | 2020-09-06 16:29 | P.PN ---
Subjective Progress Note Date: 09/06/20 Principal diagnosis: Mr. Torres is a 44-year-old male with a past medical history of hypertension who [facility] of left-sided chest pain. Patient has penitentiary officers at bedside. Patient states for the past 2-3 days he has been having chest pain substernal left-sided radiating to the left shoulder. Patient denies having any aggravating or relieving factors. He states that it is associated with nausea and had 1 episode of vomiting. He mentions that he was having mild difficulty in breathing associated with chest pain. He denies having any orthopnea or PND. Patient denies having any swelling of his lower extremities. He states that he has history of hypertension and takes his medication. Patient denies having any syncopal episode or loss of consciousness. Patient denies having any cough or difficulty in breathing. No fever chills or rigors. No abdominal pain nausea vomiting or diarrhea. No dysuria or hematuria. Patient states that he has history of repair of coarctation of the aorta as a child. In the ER at the time of admission patient's vitals temperature 98.1, heart rate 114, respiratory 20, blood pressure 136/93 saturating at 96% on room air. Patient had a chest x-ray that was negative for any acute cardiopulmonary proc ess. He had CTA of the chest that was showing no evidence of pulmonary embolism but large-caliber bladder could be related to cholecystitis. So the patient had ultrasound of the gallbladder showing mildly dilated gallbladder with minimal wall thickening consistent with cholecystitis. On reviewing his labs white count of 6.5, hemoglobin 13.2, platelets 165. Sodium 144 combination 2.3, chloride 110, bicarbonate 20, when necessary 28, creatinine 1.2. Troponin 0.016, 0.045, 0.040. On 09/06/2020 - patient is seen and examined at the bedside. He states that he still has epigastric discomfort. He denies having any nausea vomiting. Patient denies having any cough or difficulty in breathing. No fevers chills or rigors. Patient denies having any dysuria or hematuria. On reviewing his vitals temperature of 98.8, heart rate 89, respiratory 20, blood pressure 151/106, saturating at 93% on room air. On reviewing his labs from this morning white count is 6.4, hemoglobin 14.1, platelets 166. Sodium 143 on percussion 4, chloride 109, bicarbonate 24, BUN 21, creatinine 0.8. AST 23, ALT 19, bilirubin 0.4. Active Medications Acetaminophen (Acetaminophen Tab 325 Mg Tab) 650 mg PO Q6HR PRN PRN Reason: Fever and/ or Pain Albuterol Sulfate (Albuterol Hfa Inhaler) 1 puff INHALATION RT-QID PRN PRN Reason: Shortness Of Breath Aminophylline (Aminophylline 500 Mg/20 Ml Vial) 100 mg IV ONCE PRN PRN Reason: Patient Response Stop: 09/07/20 23:00 Aspirin (Aspirin 81 Mg) 81 mg PO DAILY [facility] Last Admin: 09/06/20 12:55 Dose: 81 mg Documented by: Bupropion HCl (Bupropion 100 Mg Tab) 100 mg PO BID [facility] Last Admin: 09/06/20 12:58 Dose: 100 mg Documented by: Buspirone HCl (Buspirone Hcl 5 Mg Tab) 15 mg PO BID [facility] Last Admin: 09/06/20 12:55 Dose: 15 mg Documented by: Caffeine Citrate (Caffeine Citrate 60 Mg/3 Ml Vial) 60 mg IV ONCE PRN PRN Reason: Patient Response Stop: 09/07/20 23:00 Chlorpromazine HCl (Chlorpromazine 100 Mg Tab) 100 mg PO HS [facility] Last Admin: 09/05/20 21:10 Dose: 100 mg Documented by: Heparin Sodium (Porcine) (Heparin Sodium,Porcine/Pf 5,000 Unit/0.5 Ml Syringe) 5,000 unit SQ Q12HR [facility] Last Admin: 09/06/20 12:57 Dose: 5,000 unit Documented by: Piperacillin Sod/Tazobactam (Sod 3.375 gm/ Sodium Chloride) 100 mls @ 25 mls/hr IVPB Q8HR [facility] Last Admin: 09/06/20 15:13 Dose: 25 mls/hr Documented by: Lisinopril (Lisinopril 10 Mg Tab) 30 mg PO DAILY [facility] Last Admin: 09/06/20 12:57 Dose: 30 mg Documented by: Loratadine (Loratadine 10 Mg Tab) 10 mg PO DAILY [facility] Last Admin: 09/06/20 12:56 Dose: 10 mg Documented by: Metoprolol Tartrate (Metoprolol Tartrate 25 Mg Tab) 25 mg PO BID [facility] Last Admin: 09/06/20 12:57 Dose: 25 mg Documented by: Morphine Sulfate (Morphine Sulfate 4 Mg/Ml Syringe) 4 mg IVP Q4HR PRN PRN Reason: Pain Last Admin: 09/06/20 02:30 Dose: 4 mg Documented by: Non-Formulary Medication (Ciclesonide [Alvesco]) 2 puff INHALATION RT-BID [facility] Last Admin: 09/06/20 12:58 Dose: Not Given Documented by: Pantoprazole Sodium (Pantoprazole 40 Mg Tablet) 40 mg PO AC-BRKFST [facility] Last Admin: 09/06/20 12:56 Dose: 40 mg Documented by: Objective - Vital Signs Vital signs: Vital Signs Temp 97.9 F 09/06/20 07:05 Pulse 79 09/06/20 07:05 Resp 16 09/06/20 07:05 BP 116/75 09/06/20 07:05 Pulse Ox 97 09/06/20 07:05 Intake & Output 09/05/20 09/06/20 09/06/20 18:59 06:59 18:59 Intake Total 417 Balance 417 Intake: Oral 417 Other: Voiding Method Toilet Toilet Urinal Urinal # Voids 3 # Bowel Movements 1 - Exam PHYSICAL EXAMINATION: GENERAL: Comfortably lying up in the bed appears to be no acute distress. HEENT: Pupils are round and equally reacting to light. EOMI. No scleral icterus. No conjunctival pallor. CARDIOVASCULAR: S1 and S2 present. No murmurs, rubs, or gallops. PULMONARY: Bilateral breath sounds positive. No wheeze or crackles.. ABDOMEN: Soft, normal bowel sounds. No guarding or rigidity. Mild epigastric tenderness. MUSCULOSKELETAL: No joint swelling or deformity. EXTREMITIES: No edema NEUROLOGICAL: Gross neurological examination did not reveal any focal deficits. SKIN:No rash - Labs CBC & Chem 7: 09/06/20 04:43 09/06/20 04:43 Labs: Abnormal Lab Results - Last 24 Hours (Table) 09/06/20 Range/Units 04:43 BUN/Creatinine Ratio 26.25 H (12.00-20.00) Ratio Glucose 118 H (70-110) mg/dL Assessment and Plan Assessment: ASSESSMENT Acute cholecystitis Elevated troponins Acute kidney injury possibly due to dehydration- creatinine trending down Hypertension History of surgical repair of coarctation of aorta as a child Former smoker Bipolar disorder PLAN: Patient had tests pain along with elevated troponins and mildly elevated creatinine. Patient received IV fluids in the ED, creatinine is slowly trending down. Cardiology consulted, echocardiogram ordered - showing ejection fraction of 55- 60% Ultrasound abdomen - mildly dilated gallbladder with minimal wall thickening consistent with cholecystitis- surgery consulted- initiated on Zosyn. Patient scheduled for a stress echo this morning Will continue to monitor the patient closely. Further recommendations to follow depending on the progress of the patient.
[2020-09-07] MEDS: PIPERACILLIN-TAZOBACTAM 3.375 GM in SODIUM CHLORIDE 0.9% 100 ML IVPB SCH ×3 (00:04→16:30)
[2020-09-07] MEDS: NON FORMULARY DRUG (Ciclesonide [Alvesco] 6.1 GM Hfa.Aer.Ad) INHALATION SCH ×2 (05:08→10:48)
[2020-09-07 05:14] LABS: African American GFR (CKD) >90 (>60 ml/min/1.73 sqM); Anion Gap 7 mmol/L; Blood Urea Nitrogen 20 mg/dL (9-20); Calcium 8.9 mg/dL (8.4-10.2); Carbon Dioxide 26 mmol/L (22-30); Chloride 109 mmol/L (98-107); Glucose 116 mg/dL (74-99); Non-African American GFR(CKD) >90 (>60 ml/min/1.73 sqM); Potassium 3.9 mmol/L (3.5-5.1); Sodium 142 mmol/L (137-145)
[2020-09-07] MEDS ORDERED: CAFFEINE CITRATE 60 MG/3 ML VIAL IV PRN (06:00)
[2020-09-07] MEDS ORDERED: AMINOPHYLLINE 500 MG/20 ML VIAL IV PRN (06:00)
[2020-09-07] MEDS ORDERED: REGADENOSON 0.4 MG/5 ML SYRINGE IV PRN (10:00)
--- NOTE | 2020-09-07 10:27 | P.PN ---
Progress Note - Text This is a 44-year-old gentleman with history of hypertension, bipolar depression, chronic lung disease and surgery as a child to repair coarctation of the aorta, previous smoker. He was brought to the emergency department with chest pain. Found to have acute cholecystitis. Cardiology is following him for his chest pain. He underwent a stress echo yesterday 09/06 however could not tolerate it due to exercise intolerance. Echocardiogram revealed an EF of 55- 60%, trace to mild aortic regurgitation, trace to mild mitral regurgitation, mild tricuspid regurgitation, mild pulmonary hypertension. Lexiscan stress test was scheduled for today. At around 9:45-9:50am patient was in the room, able to verify his name and date of for the test, he was able to stand and pivot to the stretcher. While patient was undergoing his EKG portion of the Lexiscan stress test. Patient began to be more lethargic. He also had bilateral arm tremors. When this specification writer arriving in the room, patient was not responding to verbal or painful stimuli. Patient had a pulse and was breathing with no acute distress. His blood pressure was 173/101 heart rate in the 100s, 18 respirations, 95% on room air. He was not responding to sternal rub. Patient placed on AED life pack, he was in sinus rhythm HR 90s. He kept his eyes shut but were moving, he was swallowing. When bringing patient's arm above his head and dropping, he was able to block his arm from hitting his face. CODE STROKE called in the stress lab. Patient was transported to CT scan.
--- NOTE | 2020-09-07 10:37 | CT ---
EXAMINATION TYPE: CODE STROKE: CT brain wo contr DATE OF EXAM: 09/07/2020 COMPARISON: None HISTORY: Altered mental status during stress test. CT DLP: 291.[address] of the brain was performed. The ventricles, basal cisterns and sulci overlying the cerebral convexities demonstrate a normal appe arance. There is no evidence for intracranial hemorrhage or sulcal effacement. No mass effects are seen. Osseous calvarium is intact. Mucous retention cyst or polyp in the right maxillary sinus. If symptoms persist consider MRI as clinically warranted. IMPRESSION: 1. No acute intracranial process is seen at this time.
[2020-09-07] MEDS: PANTOPRAZOLE 40 MG TABLET PO SCH (10:48)
--- NOTE | 2020-09-07 10:57 | CT ---
EXAMINATION TYPE: CODE STROKE: CTA head neck DATE OF EXAM: 09/07/2020 COMPARISON: None HISTORY: Altered mental status during stress test. CT DLP: 291.3 mGycm CONTRAST: Performed with IV Contrast, patient injected with 65 mL of Isovue 370. Combination Contrast CTA cervical carotids and [place] CTA cervical carotids with 3-D recons truction Contrast CTA of the cervical carotids was performed 3-D reconstruction imaging obtained at a separate workstation. Right carotid system: Mild plaque is seen of the right common carotid artery. There is mild plaque a lso noted at the carotid bulb and proximal ICA. No significant diameter reduction. ECA is patent. Right vertebral artery appears unremarkable. Left carotid system: Mild plaque is seen of the left common carotid artery. There is mild plaque als o noted at the carotid bulb and proximal ICA. No significant diameter reduction. ECA is patent. Lef t vertebral artery appears unremarkable. IMPRESSION: 1. No significant diameter reduction to account for the patient's symptoms. CTA [place] with 3-D reconstruction Contrast CTA of the [place] was performed 3-D reconstruction imaging obtained at a separate workstation. Vertebrobasilar system as well as intracranial portions of the internal carotid arteries and their ma christy tributaries are patent. I do not see evidence for sizable aneurysm or vascular malformation. Pl ease note MRI provides greater sensitivity and specificity. Visualized brain appears grossly unremar kable. IMPRESSION: 1. No significant abnormality.
[2020-09-07] MEDS: buPROPion 100 MG TAB PO SCH ×3 (12:48→22:56)
[2020-09-07] MEDS: ASPIRIN 81 MG PO SCH (12:48)
[2020-09-07] MEDS: busPIRone HCl 5 MG TAB PO SCH ×2 (12:48→21:05)
[2020-09-07] MEDS: HEPARIN SODIUM,PORCINE/PF 5,000 UNIT/0.5 ML SYRINGE SQ SCH ×2 (12:48→21:06)
--- NOTE | 2020-09-07 13:15 | P.CNNES ---
History of Present Illness Consult date: 09/07/20 Requesting physician: Aster Stephens Reason for Consult: code stroke History of Present Illness: This is a 44-year-old gentleman with history of hypertension, chronic lung disease, coarctation of the aorta and had surgery at as a child, bipolar, previous tobacco user who presented to the emergency department on 09/05/2020 from nursing home because of chest discomfort. History was obtained from medical record since patient is unable to provide that information. Per the ED note the patient was having left-sided chest discomfort rating to the left shoulder having got some nausea poor appetite and emesis as well as occasional palpitation and having chest pain for the last 2 days prior to presentation he was also complaining of the shortest of breath. It seems that that on 09/07/2020 while the patient was scheduled for Lexiscan stress test today undergoing his EKG portion of Lexiscan stress test he became more lethargic was having bilateral upper tremors and then was not responding to verbal or painful stimuli. He was not responding to sternal rub. His blood pressure at that time was 173/101 heart rate of 100 respiratory of 18 and pulse ox of 95% room air. Per the cardiology notes that he kept his eyes shut but were moving he was not swallowing and the one day brought his arm above his head was dropping but he was able to block his arm from hitting his face. Prior to this episode around the 9:45-9:50 the patient was in the room, able to verify his name and date of for the test and he was able to stand and pivot for the stretcher that is documented. As a result a code stroke was activated and the stress lab. Of note during the hospital stay he was noted to have the cholecystitis. Of note the patient has been in nursing home for the past 11 years per medical records. Some other workup in the hospital consisted of: His his all vital signs on presentation to the hospital as a 136/93, heart rate of 114, respiratory of 20, temperature of 98.1 Fahrenheit oral and pulse ox of 96% room air. CT of the head is reported as no acute intracranial process seen at this time. CT angiography of the head and neck was reported as no sick of abnormality. His NIH scored at stroke code was 30. Stroke team will contact him and the patient dad did not receive IV TPA and no intervention per the nurse. His initial troponin on presentation is 0.045 repeated 0.040 which is elevated. His creatinine on presentation is 1.41 in the repeat is 1.20. Otherwise the CBC with differential and the chemistry panel seems unremarkable from neurological stand point. Review of Systems Review of system is limited with apparent positive and negative as per HPI. Past Medical History Past Medical History: Hypertension History of Any Multi-Drug Resistant Organisms: None Reported Past Surgical History: Coronary Bypass/CABG Additional Past Surgical History / Comment(s): Surgery for repair of coarctation of the aorta as a child Past Psychological History: Bipolar, Depression Smoking Status: Never smoker Past Alcohol Use History: None Reported Past Drug Use History: None Reported Medications and Allergies Home Medications Medication Instructions Recorded Confirmed Type Albuterol Sulfate [Albuterol 1 puff PO RT-QID PRN 09/04/20 09/04/20 History Sulfate Hfa] Cetirizine HCl 10 mg PO DAILY 09/04/20 09/04/20 History Ciclesonide [Alvesco] 2 puff INHALATION RT-BID 09/04/20 09/04/20 History Ibuprofen [Motrin Ib] 800 mg PO BID PRN 09/04/20 09/04/20 History Omeprazole 20 mg PO DAILY 09/04/20 09/04/20 History buPROPion [Wellbutrin] 100 mg PO BID 09/04/20 09/04/20 History busPIRone HCL 15 mg PO BID 09/04/20 09/04/20 History chlorproMAZINE [Thorazine] 100 mg PO HS 09/04/20 09/04/20 History lisinopriL 30 mg PO DAILY 09/04/20 09/04/20 History Allergies Allergy/AdvReac Type Severity Reaction Status Date / Time No Known Allergies Allergy Verified 09/04/20 19:37 Physical Examination - Vital Signs Vital Signs: Vital Signs Temp Pulse Resp BP Pulse Ox 09/07/20 11:27 98.0 F 86 156/102 96 09/07/20 10:47 160/102 98 09/07/20 07:00 98.0 F 80 18 144/92 96 09/07/20 02:00 98.1 F 72 14 125/85 96 09/06/20 20:00 93 16 09/06/20 19:20 97.5 F L 93 16 120/83 97 09/06/20 14:10 97.7 F 86 16 120/80 97 Intake and Output 09/06/20 09/07/20 09/07/20 22:59 06:59 14:59 Intake Total 350 Balance 350 Intake: Oral 350 Other: Voiding Method Toilet Toilet Urinal Urinal # Voids 2 2 GENERAL: The patient is lying in bed and does not seem in acute distress. CHEST: The heart rate is regular rate rhythm. No murmurs to auscultation. No carotid bruit bilaterally. LUNG: Clear to auscultation bilaterally no wheezing noted throughout. Not labored breathing. ABDOMEN/GI: Bowel sounds present in all 4 quadrants. No tenderness to palpation throughout. NEUROLOGICAL: Limited because of his condition Higher mental function: The patient is non-responsive. He had his eyes closed at time and not responding to verbal and painful stimuli. He is not following commands. Cranial nerves: He had both eyes closed and was showing resistances in opening the eyes. I manually opened his eyes and primary gaze are midline. Pupils are round, 3mm bilaterally and reactive to light. No facial weakness noted. Rest of cranial nerves could not be assessed because of his condition. Motor: Gait is deferred because of his condition. The strength is unable to assess. Upon raising his arms up and trying and dropping them he was inconsistent in dropping flat to the head and at times he was moving to the side. Decrease tone throughout. Normal bulk. Cerebellum: Could not assess. Sensation: Could not assess. Even to painful stimuli he was not withdrawing to any extremities. Reflexes (right/left): 2+ throughout. Plantars are downgoing bilaterally. Results - Laboratory Findings CBC and BMP: 09/06/20 04:43 09/07/20 04:38 Abnormal Lab Findings: Abnormal Labs 09/04/20 09/04/20 09/04/20 15:38 15:38 21:40 RBC Hct APTT 20.2 L D-Dimer 10.73 H Chloride Carbon Dioxide 19 L BUN 31 H Creatinine 1.41 H BUN/Creatinine Ratio Glucose Troponin I 0.045 H* Lipase 19 L 09/05/20 09/05/20 09/05/20 00:32 04:28 04:28 RBC 4.33 L Hct 38.6 L APTT D-Dimer Chloride 110 H Carbon Dioxide BUN 28.0 H Creatinine BUN/Creatinine Ratio 23.33 H Glucose Troponin I 0.040 H* Lipase 09/06/20 09/07/20 04:43 04:38 RBC Hct APTT D-Dimer Chloride 109 H Carbon Dioxide BUN Creatinine BUN/Creatinine Ratio 26.25 H Glucose 118 H 116 H Troponin I Lipase Assessment and Plan Assessment: Episode of unresponsiveness. Not sure exact cause. His examination is limited but seems inconsistent. Not sure if related to his cardiac vs neurological vs functional. Chest pain, shortness of breath palpitatios Elevated troponin Hypertension Coarctation of the aorta as a child Bipolar Former nicotine dependence Plan: CT of the head is reported as no acute intracranial process seen at this time. CT angiography of the head and neck was reported as no sick of abnormality. I ordered an EEG. I'll not start the patient on antiepileptic drug unless there is epileptiform discharges or seizure on the EEG. The patient is on aspirin 81 mg daily. Started on Lipitor 40mg qhs. Occupation therapy, physical therapy and speech therapy are consulted. Lipid panel is ordered by the ED team is pending. On continuous Harpreet monitoring Every 4 hours neuro checks. We'll hold off on getting MRI at this time and we will assess the patient's later tomorrow. Regarding his chest pain we'll defer that to the cardiology team. We'll defer the rest of the medical management to primary team. The plan is discussed with the patient's nurse. Thank you for the consultation. Golden Vicente M.D. Neuro-hospitalist Time with Patient: Greater than 30
[2020-09-07] MEDS: METOPROLOL TARTRATE 25 MG TAB PO SCH ×3 (15:03→22:56)
[2020-09-07] MEDS: lisinopriL 10 MG TAB PO SCH (15:03)
--- NOTE | 2020-09-07 15:12 | P.PN ---
Subjective Progress Note Date: 09/07/20 CHIEF COMPLAINT: Epigastric pain and chest pain HISTORY OF PRESENT ILLNESS: Surgical service is following in regards to patient's cholecystitis. Patient is currently on antibiotics. He went for a stress test. And apparently during the stress test on a code stroke was called. Patient has been evaluated by neurology and workup is in progress. Patient is currently lying in bed comfortably. No abdominal pain reported. Afebrile. Patient seen and examined with Dr. Zayas PHYSICAL EXAM: VITAL SIGNS: Reviewed. GENERAL: Well-developed in no acute distress. HEENT: No sclera icterus. Extraocular movements grossly intact. Moist buccal mucosa. Head is atraumatic, normocephalic. ABDOMEN: Soft. NEUROLOGIC: Alert and oriented. Cranial nerves II through XII grossly intact. ASSESSMENT: 1. Chronic cholecystitis PLAN: -Continue antibiotics -Continue low-fat diet -No surgical intervention planned -Continue neurology and cardiac workup Physician Training And Development Manager note has been reviewed by physician. Signing provider agrees with the documented findings, assessment, and plan of care. Objective - Vital Signs Vital signs: Vital Signs Temp 98.0 F 09/07/20 11:27 Pulse 86 09/07/20 11:27 Resp 18 09/07/20 07:00 BP 156/102 09/07/20 11:27 Pulse Ox 96 09/07/20 11:27 Intake & Output 09/06/20 09/07/20 09/07/20 18:59 06:59 18:59 Intake Total 350 Balance 350 Weight 84.82 kg Intake: Oral 350 Other: Voiding Method Toilet Toilet Urinal Urinal # Voids 2 2 # Bowel Movements 0 - Labs CBC & Chem 7: 09/06/20 04:43 09/07/20 04:38 Labs: Abnormal Lab Results - Last 24 Hours (Table) 09/07/20 Range/Units 04:38 Chloride 109 H (98-107) mmol/L Glucose 116 H (74-99) mg/dL
--- NOTE | 2020-09-07 15:16 | EST ---
EXERCISE STRESS AGE: 46 SEX: M HT: 6' WT: 186 lbs. PROTOCOL: Lexiscan STAGE: N/A DURATION OF EXERCISE: 5 minutes HEART RATE REST: 77 BLOOD PRESSURE REST: 153/107 MAXIMUM HEART RATE ACHIEVED: 111 MAXIMUM BLOOD PRESSURE: 169/109 85% MPHR: 148 100% MPHR: 174 METS: N/A INDICATIONS: Chest pain CLINICAL INFORMATION: Mr. Torres was brought in for a stress test. He received Lexiscan as per protocol. Heart rate changed from 77 to 111 beats per minute. LVH by voltage criteria was noted. No significant EKG changes were noted but the patient became unresponsive, lethargic and therefore a code stroke was called. The patient did not have a stress imaging performed. Patient remained hemodynamically stable. Neurologically we could not assess for his rhythm and pulse rhythm and blood pressure was unremarkable. He was if any hypertensive. Neurology evaluation was requested. The patient was sent for a CT scan which was unremarkable. MMODL / IJN: [id number] /
--- NOTE | 2020-09-07 15:28 | EEG ---
ELECTROENCEPHALOGRAM REPORT DATE OF SERVICE: 09/07/2020. CLINICAL HISTORY: This is a 44-year-old gentleman who presented to the emergency department because of chest pain, who became unresponsive today on 09/07/2020. The video EEG is obtained to evaluate for seizure and epileptiform activity. RELEVANT MEDICATION: The patient is not on any antiepileptic drugs. EEG TYPE: A routine 21 channel EEG is performed with video using the 10/20 electrode placement system. DESCRIPTION: Wakefulness is obtained. During wakefulness there is a posterior dominant rhythm of low to moderate voltage, well modulated, well sustained, 9-9.5 hertz activity. There is no sleep architecture seen. There is no focal slowing seen. Interictal and ictal are none. There is head shaking and arm tremoring seen during the last half of study (13:15) are without EEG correlate for seizure. ACTIVATION PROCEDURES: Photic stimulation did not evoke a posterior driving response. There is no abnormality during the photic stimulation. Hyperventilation is not performed. CLINICAL INTERPRETATION: This is normal routine EEG. There are no focal slowing, epileptiform discharge or seizure on the EEG. The head shaking and arm tremoring seen are without EEG correlate for seizure. Clinical correlation is recommended. MMODL / IJN: [id number] / MTDD
--- NOTE | 2020-09-07 15:47 | PN ---
PROGRESS NOTE Mr. Mims had a stress echo that was inconclusive. I recommended a Lexiscan stress test. He came in for the procedure and suddenly did not wish to respond. Acted very lethargic. It is unclear if this is real or not. A CODE was called. CT scan and CT angio do not reveal any significant abnormalities. The patient's troponin rise does not suggest myocardial injury. Echocardiogram is normal. Physical exam is normal. He has had history of coarctation repair when he was very young under 8 years of age, details unavailable. I am recommending a neurology and possibly a psych evaluation and from a cardiac standpoint, no further intervention is necessary. Patient was reluctant for a stress test. I will not perform any stress test this hospitalization and echocardiogram revealed normal systolic function. We will continue to see the patient as needed and further care by Neurology. He is going to have any EEG today. I am unable to communicate well with the patient since he closes his eyes and does not open or communicate when questioned or examined. MMODL / IJN: [id number] /
--- NOTE | 2020-09-07 16:24 | NM ---
EXAMINATION TYPE: NM myocardial SPECT single DATE OF EXAM: 09/07/2020 COMPARISON: NONE HISTORY: Chest pain Following administration of 9.7 mCi Tc 99m Sestamibi. Images obtained 70 minutes post injection. FINDINGS: Exam was not completed. Rest only images obtained. Calculated ejection fraction is 64%. No focal radiopharmaceutical defect noted on rest images within the myocardium. IMPRESSION: Consider echocardiographic correlation for elevated ejection fraction. Incomplete exam.
[2020-09-07] MEDS: LORATADINE 10 MG TAB PO SCH (16:29)
--- NOTE | 2020-09-07 17:32 | P.CN ---
Psychiatric Consult - . Consult date: 09/07/20 Consult:: Patient was seen in his room for a Psych consult for " Bipolar, Mental Status Change". Specific reasons for Psych consultation is missing except as noted. Patient was laying down on his bed and did not respond verbally at all. Two women Deputies were guarding him. 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 Reasons not known. He was brought in here since he had complained of Chest pain. His Troponin level is high and the Electronic Warfare Linguist is not concerned about this per the unit nurse. Had multiple tests done including stress tests and consultation to Cardiology, Neurology etc and nothing positive apparently was detected. Per chart, he has bipolar depression and is on Thorazine 100 mg hs, Buspar 15 mg BID and Bupropion 100 mg BID. Patient does not have negativistic behavior, does not have any muscle rigidity and actually his muscles are quite flacid. No psychomotor agitation or retardation. No other unusual behavior. From time to time he swallows his saliva from his mouth. He is breathing regularly and does not appear to be in any distress. Assessment: Cannot make it easier psychiatric assessment at this time. Per his nurse apparently he will be released back to the intermediate and everything is cleared. Recommendations: Thorazine is not a safe drug to use in a person with hypertension and heart problems, with elevated troponin level and was complaining of chest pain. Bupropion or any other antidepressants are not recommended for the treatment of a person with bipolar disorder. I have no idea why he is on BuSpar when his diagnosis is bipolar depressive disorder. I will be glad to see him again if he continues to stay here and is able to provide good information. 09/07/20 17:05
[2020-09-07] MEDS: ATORVASTATIN 40 MG TAB PO SCH ×2 (21:05→22:56)
[2020-09-07] MEDS: chlorproMAZINE 100 MG TAB PO SCH ×2 (21:06→22:56)
[2020-09-08] MEDS: PIPERACILLIN-TAZOBACTAM 3.375 GM in SODIUM CHLORIDE 0.9% 100 ML IVPB SCH ×4 (00:02→23:33)
--- NOTE | 2020-09-08 00:35 | P.PN ---
Subjective Progress Note Date: 09/07/20 Mr. Torres is a 44-year-old male with a past medical history of hypertension who was sent in from correction for evaluation of left-sided chest pain. Patient has correction officers at bedside. Patient states for the past 2-3 days he has been having chest pain substernal left-sided radiating to the left shoulder. Patient denies having any aggravating or relieving factors. He states that it is associated with nausea and had 1 episode of vomiting. He mentions that he was having mild difficulty in breathing associated with chest pain. He denies having any orthopnea or PND. Patient denies having any swelling of his lower extremities. He states that he has history of hypertension and takes his medication. Patient denies having any syncopal episode or loss of consciousness. Patient denies having any cough or difficulty in breathing. No fever chills or rigors. No abdominal pain nausea vomiting or diarrhea. No dysuria or hematuria. Patient states that he has history of repair of coarctation of the aorta as a child. In the ER at the time of admission patient's vitals temperature 98.1, heart rate 114, respiratory 20, blood pressure 136/93 saturating at 96% on room air. Patient had a chest x-ray that was negative for any acute cardiopulmonary process. He had CTA of the chest that was showing no evidence of pulmonary embolism but large-caliber bladder could be related to cholecystitis. So the patient had ultrasound of the gallbladder showing mildly dilated gallbladder with minimal wall thickening consistent with cholecystitis. On reviewing his labs white count of 6.5, hemoglobin 13.2, platelets 165. Sodium 144 combination 2.3, chloride 110, bicarbonate 20, when necessary 28, creatinine 1.2. Troponin 0.016, 0.045, 0.040. On 09/06/2020 - patient is seen and examined at the bedside. He states that he still has epigastric discomfort. He denies having any nausea vomiting. Patient denies having any cough or difficulty in breathing. No fevers chills or rigors. Patient denies having any dysuria or hematuria. On reviewing his vitals temperature of 98.8, heart rate 89, respiratory 20, blood pressure 151/106, saturating at 93% on room air. On reviewing his labs from this morning white count is 6.4, hemoglobin 14.1, platelets 166. Sodium 143 on percussion 4, chloride 109, bicarbonate 24, BUN 21, creatinine 0.8. AST 23, ALT 19, bilirubin 0.4. On 09/07/2020 -patient is seen and examined at the bedside. Two correction guards present at bedside. This morning patient went to stress test, during the end of his stress test, patient became more lethargic and started to have bilateral arm tremors. Then the patient did not respond to verbal or painful stimuli, at that point his blood pressure was 173/101, heart rate 100s, respiratory rate 18, saturating at 95% on room air. As the patient was not responding to the sternal rub, he was placed on AED life back, was noted to be in sinus rhythm. At that point of time code stroke was evaluated and the patient was taken to the CAT scan. Patient had a CT of the brain that was negative for any acute intracranial process and he also had CT angio of the head that was unremarkable. So neurology has been consulted. When I went to see the patient around 11:20 AM, patient was closing his eyes and trying to move/shake his both upper extremities. He did not open his eyes on calling his name. Patient is able to move all four extremities but was purposefully not following commands. On reviewing the patient's vitals temperature of 98.7, heart rate 83, respiratory 16, blood pressure 168/118, saturating at 95% on room air. Patient's labs from this morning sodium 142, potassium 3.9, chloride 109, bicarb 36, BUN 20, creatinine 0.91. Objective - Vital Signs Vital signs: Vital Signs Temp 98.0 F 09/07/20 07:00 Pulse 80 09/07/20 07:00 Resp 18 09/07/20 07:00 BP 160/102 09/07/20 10:47 Pulse Ox 98 09/07/20 10:47 Intake & Output 09/06/20 09/07/20 09/07/20 18:59 06:59 18:59 Intake Total 350 Balance 350 Weight 84.82 kg Intake: Oral 350 Other: Voiding Method Toilet Toilet Urinal Urinal # Voids 2 2 # Bowel Movements 0 - Exam PHYSICAL EXAMINATION: GENERAL: closed his eyes and trying to shake his both hands HEENT: Pupils are round and equally reacting to light. EOMI. No scleral icterus. No conjunctival pallor. CARDIOVASCULAR: S1 and S2 present. No murmurs, rubs, or gallops. PULMONARY: Bilateral breath sounds positive. No wheeze or crackles.. ABDOMEN: Soft, non - tender , normal bowel sounds. No guarding or rigidity. MUSCULOSKELETAL: No joint swelling or deformity. EXTREMITIES: No edema NEUROLOGICAL: Gross neurological examination did not reveal any focal deficits. SKIN:No rash - Labs CBC & Chem 7: 09/06/20 04:43 09/07/20 04:38 Labs: Abnormal Lab Results - Last 24 Hours (Table) 09/07/20 Range/Units 04:38 Chloride 109 H (98-107) mmol/L Glucose 116 H (74-99) mg/dL Assessment and Plan Assessment: ASSESSMENT Episode of unresponsiveness Acute cholecystitis Elevated troponins Acute kidney injury possibly due to dehydration- creatinine trending down Hypertension History of surgical repair of coarctation of aorta as a child Former smoker Bipolar disorder PLAN: Cardiology consulted, echocardiogram ordered - showing ejection fraction of 55- 60% Ultrasound abdomen - mildly dilated gallbladder with minimal wall thickening consistent with cholecystitis- surgery consulted- initiated on Zosyn. Patient scheduled for a stress echo this morning - at the end of the test pt had an episode of unresponsiveness - code stroke activated CT head and CT angio - WNL, Neurology consulted Will continue to monitor the patient closely. Further recommendations to follow depending on the progress of the patient.
[2020-09-08 01:46] LABS: Appearance,Urine Clear (Clear); Bilirubin,Urine Negative (Negative); Blood,Urine Negative (Negative); Color,Urine Yellow; Glucose,Urine (UA) Negative (Negative); Ketones,Urine Negative (Negative); Leukocyte Esterase,Urine Negative (Negative); Nitrite,Urine Negative (Negative); PH, Urine 6.5 (5.0-8.0); Protein,Urine Negative (Negative); Specific Gravity,Urine 1.038 (1.001-1.035); Urobilinogen,Urine <2.0 mg/dL (<2.0)
[2020-09-08] MEDS: NON FORMULARY DRUG (Ciclesonide [Alvesco] 6.1 GM Hfa.Aer.Ad) INHALATION SCH ×3 (03:02→23:03)
--- NOTE | 2020-09-08 08:12 | P.PN ---
Subjective Progress Note Date: 09/08/20 Issues at bedside and he is accompanied by the 2 officers who are bedside stated that overnight shift there were notified by the officers that the patient was the communicating with them he is moving all extremities without any drift, moving the tray scratching his head. Upon seeing the patient with a nurse he close his eyes and would not respond but according to the officers at bedside he was just moving the tray scratching his head not to long ago. Objective - Vital Signs Vital signs: Vital Signs Temp 98.9 F 09/08/20 02:00 Pulse 83 09/08/20 02:00 Resp 16 09/08/20 02:00 BP 144/99 09/08/20 02:00 Pulse Ox 94 L 09/08/20 02:00 Intake & Output 09/07/20 09/08/20 09/08/20 18:59 06:59 18:59 Intake Total 0 Output Total 1000 Balance -1000 Intake: Oral 0 Output: Urine 1000 Other: Voiding Method Toilet Urinal # Voids 1 0 - Exam GENERAL: The patient is lying in bed and is not in acute distress. NEUROLOGICAL: Limited because of his cooperation. Higher mental function: The patient has his eyes closed and not responding. But then all the sudden he was following command, showing, thumbs up and lifting bilateral upper extremities above gravity. He was verbally communicating. Could not assess language because of his cooperation. Cranial nerves: Initially resisting to open his eyes then after opening his eyes manually he then kept his eyes open and was moving it to the right and left to command and no nystagmus noted. No facial weakness. Could not assess rest of cranial nerves because of his cooperations. Motor: Initially would not move his extremities but with further asking to do so, he was able to lift all extremities above gravity. Normal tone and bulk. Cerebellum: Could not assess because of cooperation. Sensation: Could not assess because of cooperation. Plantars are downgoing bilaterally. IMAGING/OTHER TESTS: CT of the head is reported as no acute intracranial process seen at this time. CT angiography of the head and neck was reported as no sick of abnormality. Routine EEG on 09/07/2020 this is a normal routine EEG. There are no focal slowing, epileptiform discharges or seizure on the EEG. The head shaking and arm tremoring seen are without EEG correlate for seizure. - Labs CBC & Chem 7: 09/06/20 04:43 09/07/20 04:38 Labs: Abnormal Lab Results - Last 24 Hours (Table) 09/08/20 Range/Units 01:15 Ur Specific [place] 1.038 H (1.001-1.035) Assessment and Plan Assessment: * Episode of unresponsiveness. It is not neurological cause (per officers at bed he is communicating with overnight officers and moving all extremities. On neurological examination he shows a lot of resistance to cooperate then toward end would follow commands and moving all extremities). * Chest pain, shortness of breath palpitatios * Elevated troponin (per cardiology team it is insignificant) * Hypertension * Coarctation of the aorta as a child * Bipolar * Former nicotine dependence Plan: * The patient is on aspirin 81 mg daily AND Lipitor 40mg qhs. * Occupation therapy, physical therapy and speech therapy are consulted. * On continuous Cardiac monitoring * Every 4 hours neuro checks. * From a neurological standpoint I don't see a need for MRI of the brain. The patient is moving all extremities he's communicating with the officers overnight and he is having the resistance and compliant with physical exam. I do not think this is a stroke. * Cardiology team is on board. * Psychiatry team is on board. * We'll defer the rest of the medical management to primary team. The plan is discussed with the patient's nurse and cardiology team. Golden Vicente M.D. Neuro-hospitalist Time with Patient: Less than 30
[2020-09-08] MEDS: ASPIRIN 81 MG PO SCH (08:39)
[2020-09-08] MEDS: PANTOPRAZOLE 40 MG TABLET PO SCH (08:41)
[2020-09-08] MEDS: buPROPion 100 MG TAB PO SCH ×2 (08:41→21:48)
[2020-09-08] MEDS: lisinopriL 10 MG TAB PO SCH (08:41)
[2020-09-08] MEDS: METOPROLOL TARTRATE 25 MG TAB PO SCH ×2 (08:41→21:47)
[2020-09-08] MEDS: HEPARIN SODIUM,PORCINE/PF 5,000 UNIT/0.5 ML SYRINGE SQ SCH ×2 (08:42→21:42)
[2020-09-08] MEDS: LORATADINE 10 MG TAB PO SCH (08:43)
[2020-09-08 09:52] LABS: African American GFR (CKD) 124.2 (60.0-200.0); Albumin/Globulin Ratio 1.9 (1.60-3.17); Anion Gap 9.9 mmol/L (4.00-12.00); BUN/Creat Ratio 23.75 Ratio (12.00-20.00); Calcium 8.8 mg/dL (8.7-10.3); Carbon Dioxide 25.1 mmol/L (21.6-31.8); Chol/HDL Ratio 5.47; Globulin 2.1 g/dL (1.6-3.3); LDL Cholesterol,Calculated 113.8 mg/dL (0.0-131.0); Non-African American GFR(CKD) 107.1 (60.0-200.0); Potassium 3.8 mmol/L (3.5-5.5); Total Bilirubin 0.9 mg/dL (0.2-1.2); Total Protein 6.1 g/dL (6.2-8.2); VLDL Calculation 29.2 mg/dL (5.00-40.00)
[2020-09-08] MEDS: busPIRone HCl 5 MG TAB PO SCH (10:47)
--- NOTE | 2020-09-08 12:45 | P.PN ---
Subjective This is a 44-year-old gentleman with history of hypertension, bipolar depression, chronic lung disease and surgery as a child to repair coarctation of the aorta. He was a previous smoker but quit 11 years ago. Patient has been in long-term for the last 11 years. Is brought to the emergency department with complaints of chest discomfort over the last couple of days. EKG on admission shows sinus tachycardia, biatrial enlargement, incomplete right bundle-branch block and evidence of LVH. Chest x-ray showed normal chest. Chest CTA showed no evidence of pulmonary embolism, emphysema and large gallbladder which could relate to cholecystitis. Report of chest CTA was reviewed again and showed no aneurysm or dissection of the traffic aorta with a descending aorta measuring 3.2 cm. Ultrasound of the gallbladder showed mildly dilated gallbladder, minimal wall thickening, consistent with cholecystitis, no gallstones and no focal liver defect. Patient has no abdominal tenderness to palpation. Laboratory values showed a normal CBC, potassium 3.9, BUN 31, creatinine 1.41, NT proBNP of 38 and troponin 0.016, 0.045 and 0.040. Echocardiogram revealed an EF of 55-60%, trace to mild aortic regurgitation, trace to mild mitral regurgitation, mild tricuspid regurgitation, mild pulmonary hypertension. Elevated pressure gradient on descending aorta, coarctation repair at age 3. 09/08/2020 Patient seen and examined at bedside, no acute distress. More alert this morning. He denies chest pain, shortness of breath, lightheadedness, dizziness. Patient unable to complete Lexiscan stress test yesterday (see note). Neurology following. Psychiatry following patient. Blood pressure 144/99, heart rate 85, afebrile, maintaining oxygen saturations on room air. Laboratory data reviewed sodium 143, potassium 3.8, BUN 19, serum creatinine 0.8 GENERAL: Well-appearing, well-nourished and in no acute distress. NECK: Supple without JVD or thyromegaly. LUNGS: Breath sounds clear to auscultation bilaterally. Respiration equal and unlabored. No wheezes, rales or rhonchi. HEART: Regular rate and rhythm. S1 and S2 heard. EXTREMITIES: Normal range of motion, no edema. No clubbing or cyanosis. Peripheral pulses intact. ASSESSMENT Chest pain, shortness of breath, palpitations Elevated troponin, not consistent with acute coronary syndrome. Hypertension Prior surgical repair of coarctation of aorta Bipolar depression Former nicotine dependence PLAN From cardiology perspective, elevated troponin not consistent with acute coronary syndrome. Patient unable to tolerate Lexiscan stress test or stress echo test. Patient's echocardiogram with an EF of 55-60%, no wall motion abnormalities. From cardiology perspective no further cardiac testing at this time. We will see the patient as needed. Please reconsult if needed. Continue Lisinopril 20mg daily and statin Patient can follow up outpatient Rest of management per neurology, psychiatry, and primary team Nurse Practitioner note has been reviewed, I agree with a documented findings and plan of care. Patient was seen and examined. Objective - Vital Signs Vital signs: Vital Signs Temp 98.4 F 09/08/20 07:00 Pulse 81 09/08/20 07:00 Resp 16 09/08/20 07:00 BP 152/109 09/08/20 07:00 Pulse Ox 94 L 09/08/20 07:00 Intake & Output 09/07/20 09/08/20 09/08/20 18:59 06:59 18:59 Intake Total 0 Output Total 1000 Balance -1000 Intake: Oral 0 Output: Urine 1000 Other: Voiding Method Toilet Urinal # Voids 1 0 - Labs CBC & Chem 7: 09/06/20 04:43 09/08/20 03:47 Labs: Abnormal Lab Results - Last 24 Hours (Table) 09/08/20 09/08/20 Range/Units 01:15 03:47 BUN/Creatinine Ratio 23.75 H (12.00-20.00) Ratio Total Protein 6.1 L (6.2-8.2) g/dL HDL Cholesterol 32.0 L (40.0-60.0) mg/dL Ur Specific [place] 1.038 H (1.001-1.035)
--- NOTE | 2020-09-08 13:11 | P.PN ---
Subjective Progress Note Date: 09/08/20 CHIEF COMPLAINT: Epigastric pain and chest pain HISTORY OF PRESENT ILLNESS: Surgical service is following in regards to patient's cholecystitis. Patient is sitting up in bed. Officers are at bedside. He denies any abdominal pain. He tolerated diet. Denies any nausea or vomiting. He is afebrile. PHYSICAL EXAM: VITAL SIGNS: Reviewed. GENERAL: Well-developed in no acute distress. HEENT: No sclera icterus. Extraocular movements grossly intact. Moist buccal mucosa. Head is atraumatic, normocephalic. ABDOMEN: Soft. Nondistended nontender NEUROLOGIC: Alert and oriented. Cranial nerves II through XII grossly intact. ASSESSMENT: 1. Chronic cholecystitis PLAN: -Patient is stable from surgical standpoint for discharge -No surgical intervention planned -Continue low-fat diet Physician Desk Top Publisher note has been reviewed by physician. Signing provider agrees with the documented findings, assessment, and plan of care. Objective - Vital Signs Vital signs: Vital Signs Temp 98.4 F 09/08/20 07:00 Pulse 81 09/08/20 07:00 Resp 16 09/08/20 07:00 BP 152/109 09/08/20 07:00 Pulse Ox 94 L 09/08/20 07:00 Intake & Output 09/07/20 09/08/20 09/08/20 18:59 06:59 18:59 Intake Total 0 Output Total 1000 Balance -1000 Intake: Oral 0 Output: Urine 1000 Other: Voiding Method Toilet Urinal # Voids 1 0 - Labs CBC & Chem 7: 09/06/20 04:43 09/08/20 03:47 Labs: Abnormal Lab Results - Last 24 Hours (Table) 09/08/20 09/08/20 Range/Units 01:15 03:47 BUN/Creatinine Ratio 23.75 H (12.00-20.00) Ratio Total Protein 6.1 L (6.2-8.2) g/dL HDL Cholesterol 32.0 L (40.0-60.0) mg/dL Ur Specific [place] 1.038 H (1.001-1.035)
[2020-09-08] MEDS: ATORVASTATIN 40 MG TAB PO SCH (21:47)
--- NOTE | 2020-09-09 00:35 | P.PN ---
Subjective Progress Note Date: 09/08/20 Principal diagnosis: Acute Cholecystitis Mr. Torres is a 44-year-old male with a past medical history of hypertension who was sent in from correction for evaluation of left-sided chest pain. Patient has correction officers at bedside. Patient states for the past 2-3 days he has been hav ing chest pain substernal left-sided radiating to the left shoulder. Patient denies having any aggravating or relieving factors. He states that it is associated with nausea and had 1 episode of vomiting. He mentions that he was having mild difficulty in breathing associated with chest pain. He denies having any orthopnea or PND. Patient denies having any swelling of his lower extremities. He states that he has history of hypertension and takes his medication. Patient denies having any syncopal episode or loss of consciousness. Patient denies having any cough or difficulty in breathing. No fever chills or rigors. No abdominal pain nausea vomiting or diarrhea. No dysuria or hematuria. Patient states that he has history of repair of coarctation of the aorta as a child. In the ER at the time of admission patient's vitals temperature 98.1, heart rate 114, respiratory 20, blood pressure 136/93 saturating at 96% on room air. Patient had a chest x-ray that was negative for any acute cardiopulmonary process. He had CTA of the chest that was showing no evidence of pulmonary embolism but large-caliber bladder could be related to cholecystitis. So the patient had ultrasound of the gallbladder showing mildly dilated gallbladder with minimal wall thickening consistent with cholecystitis. On reviewing his labs white count of 6.5, hemoglobin 13.2, platelets 165. Sodium 144 combination 2.3, chloride 110, bicarbonate 20, when necessary 28, creatinine 1.2. Troponin 0.016, 0.045, 0.040. On 09/06/2020 - patient is seen and examined at the bedside. He states that he still has epigastric discomfort. He denies having any nausea vomiting. Patient denies having any cough or difficulty in breathing. No fevers chills or rigors. Patient denies having any dysuria or hematuria. On reviewing his vitals temperature of 98.8, heart rate 89, respiratory 20, blood pressure 151/106, saturating at 93% on room air. On reviewing his labs from this morning white count is 6.4, hemoglobin 14.1, platelets 166. Sodium 143 on percussion 4, chloride 109, bicarbonate 24, BUN 21, creatinine 0.8. AST 23, ALT 19, bilirubin 0.4. On 09/07/2020 -patient is seen and examined at the bedside. Two correction guards present at bedside. This morning patient went to stress test, during the end of his stress test, patient became more lethargic and started to have bilateral arm tremors. Then the patient did not respond to verbal or painful stimuli, at that point his blood pressure was 173/101, heart rate 100s, respiratory rate 18, saturating at 95% on room air. As the patient was not responding to the sternal rub, he was placed on AED life back, was noted to be in sinus rhythm. At that point of time code stroke was evaluated and the patient was taken to the CAT scan. Patient had a CT of the brain that was negative for any acute intracranial process and he also had CT angio of the head that was unremarkable. So neurology has been consulted. When I went to see the patient around 11:20 AM, patient was closing his eyes and trying to move/shake his both upper extremities. He did not open his eyes on calling his name. Patient is able to move all four extremities but was purposefully not following commands. On 09/08/2020 -patient is seen and examined at the bedside. His mentation is back to normal. He is comfortably lying in bed appears to be no acute distress. He denies having any active complaints. No chest pain or palpitations. No cough or difficulty breathing. No abdominal pain nausea vomiting or diarrhea. On reviewing the patient's vitals temperature of 98.1, heart rate 64, respiratory 18, blood pressure 135/84 saturating at 98% on room air. Reviewing labs from this morning sodium 143, potassium 3.8, chloride 100, bicarb 25,. 19, creatinine 0.8. Patient's medications have been he is on Tylenol, albuterol, aspirin, Lipitor, bupropion, Zestril, Claritin, metoprolol, morphine, Protonix, Zosyn. Objective - Vital Signs Vital signs: Vital Signs Temp 98.1 F 09/08/20 14:19 Pulse 64 09/08/20 14:19 Resp 18 09/08/20 14:19 BP 135/84 09/08/20 14:19 Pulse Ox 98 09/08/20 14:19 Intake & Output 09/07/20 09/08/20 09/08/20 18:59 06:59 18:59 Intake Total 0 Output Total 1000 Balance -1000 Intake: Oral 0 Output: Urine 1000 Other: Voiding Method Toilet Urinal # Voids 1 0 1 - Exam PHYSICAL EXAMINATION: GENERAL: no distress , resting in bed, guards at bed side. HEENT: Pupils are round and equally reacting to light. EOMI. No scleral icterus. No conjunctival pallor. CARDIOVASCULAR: S1 and S2 present. No murmurs, rubs, or gallops. PULMONARY: Bilateral breath sounds positive. No wheeze or crackles.. ABDOMEN: Soft, non - tender , normal bowel sounds. No guarding or rigidity. MUSCULOSKELETAL: No joint swelling or deformity. EXTREMITIES: No edema NEUROLOGICAL: Gross neurological examination did not reveal any focal deficits. SKIN:No rash - Labs CBC & Chem 7: 09/06/20 04:43 09/08/20 03:47 Labs: Abnormal Lab Results - Last 24 Hours (Table) 09/08/20 09/08/20 Range/Units 01:15 03:47 BUN/Creatinine Ratio 23.75 H (12.00-20.00) Ratio Total Protein 6.1 L (6.2-8.2) g/dL HDL Cholesterol 32.0 L (40.0-60.0) mg/dL Ur Specific [place] 1.038 H (1.001-1.035) Assessment and Plan Assessment: ASSESSMENT Episode of unresponsiveness Acute cholecystitis Elevated troponins Acute kidney injury possibly due to dehydration- creatinine trending down Hypertension History of surgical repair of coarctation of aorta as a child Former smoker Bipolar disorder PLAN: Cardiology consulted, echocardiogram ordered - showing ejection fraction of 55- 60% Ultrasound abdomen - mildly dilated gallbladder with minimal wall thickening consistent with cholecystitis- surgery consulted- initiated on Zosyn. Patient scheduled for a stress echo this morning - at the end of the test pt had an episode of unresponsiveness - code stroke activated CT head and CT angio - WNL, Neurology consulted - so far work up negative - functional Will discharge if Psychiatry clears him. Further recommendations to follow depending on the progress of the patient.
[2020-09-09 07:49] VITALS: BP 124/79; PULSE 63; RESP 18; TEMP 98.3
[2020-09-09] MEDS: PIPERACILLIN-TAZOBACTAM 3.375 GM in SODIUM CHLORIDE 0.9% 100 ML IVPB SCH (09:25)
[2020-09-09] MEDS: HEPARIN SODIUM,PORCINE/PF 5,000 UNIT/0.5 ML SYRINGE SQ SCH (09:26)
[2020-09-09 09:54] LABS: African American GFR (CKD) 124.2 (60.0-200.0); Albumin 3.9 g/dL (3.80-4.90); Albumin/Globulin Ratio 1.95 (1.60-3.17); Anion Gap 9.1 mmol/L (4.00-12.00); BUN/Creat Ratio 16.25 Ratio (12.00-20.00); Calcium 8.3 mg/dL (8.7-10.3); Carbon Dioxide 21.9 mmol/L (21.6-31.8); Non-African American GFR(CKD) 107.1 (60.0-200.0); Potassium 3.9 mmol/L (3.5-5.5); Total Bilirubin 0.7 mg/dL (0.2-1.2); Total Protein 5.9 g/dL (6.2-8.2)
[2020-09-09] MEDS: PANTOPRAZOLE 40 MG TABLET PO SCH (12:00)
[2020-09-09] MEDS: ASPIRIN 81 MG PO SCH (12:01)
[2020-09-09] MEDS: NON FORMULARY DRUG (Ciclesonide [Alvesco] 6.1 GM Hfa.Aer.Ad) INHALATION SCH (12:01)
[2020-09-09] MEDS: lisinopriL 10 MG TAB PO SCH (12:01)
[2020-09-09] MEDS: buPROPion 100 MG TAB PO SCH (12:01)
[2020-09-09] MEDS: METOPROLOL TARTRATE 25 MG TAB PO SCH (12:02)
[2020-09-09] MEDS: LORATADINE 10 MG TAB PO SCH (12:02)
[2020-09-09 13:08] LABS: Basophils % (A) 1 %; Eosinophils # (A) 0.7 k/uL (0-0.7); Eosinophils % (A) 11 %; HCT 38.8 % (39.0-53.0); HGB 13.4 gm/dL (13.0-17.5); Lymphocytes # (A) 1.3 k/uL (1.0-4.8); Lymphocytes % (A) 22 %; MCH 29.9 pg (25.0-35.0); MCHC 34.5 g/dL (31.0-37.0); MCV 86.6 fL (80.0-100.0); Mean Platelet Volume 8.1; Monocytes # (A) 0.3 k/uL (0-1.0); Monocytes % (A) 5 %; Neutrophils # (A) 3.5 k/uL (1.3-7.7); Neutrophils % (A) 59 %; Platelet Count 125 k/uL (150-450); RBC 4.47 m/uL (4.30-5.90); RDW 12.1 % (11.5-15.5); WBC 5.9 k/uL (3.8-10.6)
--- NOTE | 2020-09-09 13:34 | P.PN ---
Subjective Progress Note Date: 09/09/20 CHIEF COMPLAINT: Epigastric pain and chest pain HISTORY OF PRESENT ILLNESS: Surgical service is following in regards to patient's cholecystitis. Patient is sitting up in bed. Officers are at bedside. He denies any abdominal pain. He tolerated diet. Denies any nausea or vomiting. He is afebrile. PHYSICAL EXAM: VITAL SIGNS: Reviewed. GENERAL: Well-developed in no acute distress. HEENT: No sclera icterus. Extraocular movements grossly intact. Moist buccal mucosa. Head is atraumatic, normocephalic. ABDOMEN: Soft. Nondistended nontender NEUROLOGIC: Alert and oriented. Cranial nerves II through XII grossly intact. ASSESSMENT: 1. Chronic cholecystitis PLAN: -Patient is stable from surgical standpoint for discharge -No surgical intervention planned -Continue low-fat diet Physician Mechanical Reliability Engineer note has been reviewed by physician. Signing provider agrees with the documented findings, assessment, and plan of care. Objective - Vital Signs Vital signs: Vital Signs Temp 98.3 F 09/09/20 07:00 Pulse 63 09/09/20 07:00 Resp 18 09/09/20 07:00 BP 124/79 09/09/20 07:00 Pulse Ox 96 09/09/20 07:00 Intake & Output 09/08/20 09/09/20 09/09/20 18:59 06:59 18:59 Intake Total 350 Balance 350 Intake: Oral 350 Other: Voiding Method Toilet Urinal # Voids 1 2 # Bowel Movements 0 - Labs CBC & Chem 7: 09/09/20 12:42 09/09/20 05:36 Labs: Abnormal Lab Results - Last 24 Hours (Table) 09/09/20 09/09/20 Range/Units 05:36 12:42 Hct 38.8 L (39.0-53.0) % Plt Count 125 L (150-450) k/uL Calcium 8.3 L (8.7-10.3) mg/dL AST 36 H (14-35) U/L Total Protein 5.9 L (6.2-8.2) g/dL
== END 2020-09-09 13:23 | DRG 445 ==
LOC: EC 14:41 → 6NMEDSUR 19:11 → OBSVTOIN 20:25
PROVIDERS: ADMIT Hospitalist; ATTEND Hospitalist
DX: K81.2 Acute cholecystitis with chronic cholecystitis (principal); N17.9 Acute kidney failure, unspecified; F31.30 Bipolar disorder, current episode depressed, mild or moderate severity, unspecified; I11.9 Hypertensive heart disease without heart failure; I27.20 Pulmonary hypertension, unspecified; I08.3 Combined rheumatic disorders of mitral, aortic and tricuspid valves; E86.0 Dehydration; J98.4 Other disorders of lung; I45.10 Unspecified right bundle-branch block; R77.8 Other specified abnormalities of plasma proteins; R25.1 Tremor, unspecified; R40.4 Transient alteration of awareness; Z79.899 Other long term (current) drug therapy; Z87.74 Personal history of (corrected) congenital malformations of heart and circulatory system; Z87.891 Personal history of nicotine dependence; Z95.1 Presence of aortocoronary bypass graft
CPT/HCPCS: 36415; 70450; 70496; 70498; 71045; 71275; 76705; 78451; 80048; 80053; 80061; 81003; 82150; 83690; 83735; 83880; 84484; 85025; 85379; 85610; 85730; 93005; 93017; 93306; 93351; 94760; 95816; 96360; 96361; 99285